=== PATIENT | male | born 1945 | race Two or more races ===

== ENCOUNTER 2017-06-22 12:41 | Inpatient (IN) | payer OTHER, MEDICARE ==
[~2017-06-22] VITALS: Ht 180.3 cm; Wt 73.5 kg
[2017-06-22] MEDS ORDERED: IV NORMAL SALINE 1000 ML BAG IV ONE (13:00)
[2017-06-22] MEDS ORDERED: TAMS0.4C34 PO (13:07)
[2017-06-22] MEDS ORDERED: ISON300T4 PO (13:07)
[2017-06-22] MEDS ORDERED: AMLO10TA2 PO (13:07)
[2017-06-22] MEDS ORDERED: WARF5TAB6 PO (13:07)
[2017-06-22] MEDS ORDERED: SENN-167 PO (13:07)
[2017-06-22] MEDS ORDERED: QUET25TA PO (13:07)
[2017-06-22] MEDS ORDERED: FOLI1TAB16 PO (13:07)
[2017-06-22] MEDS ORDERED: LEVE500T20 PO (13:07)
[2017-06-22] MEDS ORDERED: PYRI50TA14 PO (13:07)
[2017-06-22] MEDS ORDERED: ASPI81TA31 PO (13:07)
[2017-06-22] MEDS ORDERED: ATOR80TA PO (13:07)
[2017-06-22] MEDS ORDERED: LACO100T2 PO (13:07)
[2017-06-22] MEDS ORDERED: CAPS42.57 TP (13:07)
--- NOTE | 2017-06-22 13:17 | NUR ---
PT IS IN ROOM #1B. DR SAAVEDRA EVALUATED THE PT.
[2017-06-22 13:36] LABS: BASOPHILS # (AUTO) 0.4 K/uL (0.0-8.0); BASOPHILS % (AUTO) 2.2 % (0.0-2.0); EOSINOPHILS # (AUTO) 0.2 K/uL (0.0-0.7); EOSINOPHILS % (AUTO) 0.9 % (0.0-7.0); HEMATOCRIT 34.4 % (40-50); HEMOGLOBIN 11.1 G/DL (14.0-18.0); LYMPHOCYTES # (AUTO) 1.2 K/UL (0.8-4.8); LYMPHOCYTES % (AUTO) 7.2 % (20.5-51.5); MEAN CORPUSCULAR HGB CONC 32 g/dL (32.0-37.0); MEAN CORPUSCULAR VOLUME 89.8 FL (82.0-92.0); MONOCYTES % (AUTO) 11.5 % (0.0-11.0); NEUTROPHILS # (AUTO) 13.2 K/UL (1.8-8.9); NEUTROPHILS % (AUTO) 78.2 % (38.5-71.5); PLATELET COUNT (AUTO) 259 K/UL (150-450); RED BLOOD CELL COUNT(AUTO) 3.83 MIL/UL (4.7-6.1)
[2017-06-22 13:38] LABS: CREATININE 0.8 mg/dL (0.6-1.3); POTASSIUM 3.5 mmol/L (3.5-5.1)
[2017-06-22 13:44] LABS: BILIRUBIN,DIRECT 0.2 mg/dL (0.0-0.2); BILIRUBIN,TOTAL 0.7 mg/dL (0.2-1.0); TOTAL PROTEIN, SERUM 8.3 g/dL (6.4-8.2)
[2017-06-22] MEDS ORDERED: PIPERACILLIN SODIUM/TAZOBACTAM 3.375 G in IV DEXTROSE 5% 50 ML IV ONE (14:00)
[2017-06-22] MEDS ORDERED: VANCOMYCIN IV 1,000 MG in IV DEXTROSE 5% 250 ML IV ONE (14:00)
[2017-06-22 14:01] LABS: BAND % (MANUAL) 6 % (0-10); LYMPHOCYTES % (MANUAL) 8 % (20-40); MONOCYTES % (MANUAL) 11 % (2-10); NEUTROPHILS % (MANUAL) 75 % (42-75)
--- NOTE | 2017-06-22 14:15 | NUR ---
PT WAS TRANSFERED TO ROOM #215. REPORT WAS GIVEN TO MANAGER PRACTICE.
[2017-06-22] MEDS ORDERED: PIPERACILLIN/TAZOBACTAM/D5W 50 ML IV ONE (14:16)
[2017-06-22 14:30] LABS: *BLOOD, URINE 3+ (NEGATIVE); *COLOR,URINE YELLOW (YELLOW); *KETONES,URINE NEGATIVE (NEGATIVE); *PROTEIN,URINE 2+ (NEGATIVE); LEUKOCYTE ESTERASE ,URINE 2+ (NEGATIVE); NITRITE, URINE NEGATIVE (NEGATIVE); PH,URINE 8.5 (5.0-8.0); UGLUCOSE NEGATIVE (NEGATIVE)
[2017-06-22 14:38] LABS: *BILIRUBIN,URIN 1+ (NEGATIVE); *CLARITY,URINE SLIGHTLY HAZY (CLEAR)
[2017-06-22] MEDS ORDERED: VANCOMYCIN IV 200 ML ONE (14:39)
[2017-06-22 14:40] VITALS: BP 101/59
[2017-06-22 14:40] LABS: BACTERIA,URINE MANY /HPF (NONE SEEN); SQUAMOUS EPITHELIAL CELL,UR FEW /HPF (NONE SEEN); WBC,URINE 20-50 /HPF (0-3)
--- NOTE | 2017-06-22 14:40 | NUR ---
received from er. aware of name. made comfortable. no respiratory distress noted. left arm swollen.
--- NOTE | 2017-06-22 17:00 | NUR ---
dr ramírez aware of multiple skin breakdown ,wound consult per protocol
[2017-06-22] MEDS ORDERED: WARFARIN SODIUM 5 MG TABLET PO SCH (18:15)
--- NOTE | 2017-06-22 18:47 | NUR ---
CLINICAL PHARMACY NOTE: VANCOMYCIN DOSING Request for vancomycin dosing on 71 y/o male 5' 11" 162lbs for cellulitis of left elbow Temp 98.3 BUN 15 Scr 0.8 WBC 17 bands 6 Received vancomycin and Zosyn in ER. Continue Vancomycin 1Gm ivpb q12h estimated trough 17. Will order trough level prior to 4th dose. Will continue to monitor
[2017-06-22 20:25] VITALS: BP 120/75
[2017-06-22] MEDS: LEVETIRACETAM 500 MG TABLET PO SCH (21:04)
[2017-06-22] MEDS: ATORVASTATIN 40 MG TABLET PO SCH (21:04)
[2017-06-22] MEDS: SENNOSIDES 1 TABLET PO SCH (21:05)
[2017-06-22] MEDS: LACOSAMIDE 50 MG TABLET PO SCH (21:05)
[2017-06-22] MEDS: QUETIAPINE FUMARATE 25 MG TABLET PO SCH (21:05)
[2017-06-23] MEDS: VANCOMYCIN IV 1 G in PREMIXED 0 EACH IV SCH ×2 (01:51→14:12)
[2017-06-23 04:00] VITALS: BP 114/59
[2017-06-23] MEDS: Z GUARD REMEDY PASTE 57 GM TUBE TOP SCH ×3 (05:10→21:51)
[2017-06-23 06:50] LABS: CREATININE 0.7 mg/dL (0.6-1.3); POTASSIUM 3.5 mmol/L (3.5-5.1)
--- NOTE | 2017-06-23 06:58 | NUR ---
Received a call from the lab. Patient current INR is 4.86. Called Dr. Jimenez office for further orders.
[2017-06-23 07:15] LABS: BASOPHILS % (AUTO) 0.3 % (0.0-2.0); EOSINOPHILS # (AUTO) 0.4 K/uL (0.0-0.7); EOSINOPHILS % (AUTO) 3.4 % (0.0-7.0); HEMATOCRIT 32.3 % (40-50); HEMOGLOBIN 10.5 G/DL (14.0-18.0); LYMPHOCYTES # (AUTO) 1.5 K/UL (0.8-4.8); LYMPHOCYTES % (AUTO) 13.6 % (20.5-51.5); MEAN CORPUSCULAR HGB CONC 33 g/dL (32.0-37.0); MEAN CORPUSCULAR VOLUME 89.4 FL (82.0-92.0); MONOCYTES # (AUTO) 1.4 K/UL (0.1-1.30); MONOCYTES % (AUTO) 12.6 % (0.0-11.0); NEUTROPHILS # (AUTO) 7.6 K/UL (1.8-8.9); NEUTROPHILS % (AUTO) 70.1 % (38.5-71.5); PLATELET COUNT (AUTO) 265 K/UL (150-450); RED BLOOD CELL COUNT(AUTO) 3.62 MIL/UL (4.7-6.1); WHITE BLOOD COUNT (AUTO) 10.9 K/UL (4.0-11.2)
--- NOTE | 2017-06-23 07:30 | NUR ---
sleeping for now. made comfortable.no distress noted, left arm remains swollen ,red., elevated x 1 pillow
[2017-06-23] MEDS: FOLIC ACID 1 MG TABLET PO SCH (08:40)
[2017-06-23] MEDS: LACOSAMIDE 50 MG TABLET PO SCH ×2 (08:40→21:47)
[2017-06-23] MEDS: TAMSULOSIN HCL 0.4 MG CAP.SR.24H PO SCH (08:40)
[2017-06-23] MEDS: LEVETIRACETAM 500 MG TABLET PO SCH ×2 (08:40→21:47)
[2017-06-23] MEDS: PYRIDOXINE HCL 100 MG TABLET PO SCH (08:40)
[2017-06-23] MEDS: ASPIRIN 81 MG TAB.CHEW PO SCH (08:41)
[2017-06-23] MEDS: QUETIAPINE FUMARATE 25 MG TABLET PO SCH ×2 (08:41→21:50)
[2017-06-23] MEDS: AMLODIPINE 10 MG TABLET PO SCH (08:46)
[2017-06-23] MEDS: ISONIAZID 100 MG TABLET PO SCH (08:50)
[2017-06-23] MEDS ORDERED: ISONIAZID 300 MG TABLET PO SCH (09:00)
[2017-06-23 11:48] VITALS: BP 105/66
--- NOTE | 2017-06-23 12:15 | NUR ---
dr roy aware of inr elevated, made order and carried out
--- NOTE | 2017-06-23 12:45 | NUR ---
seen by dr arevalo, aspirated left elbow with yellow fluid,tolerated well by patient.specimen sent to lab as ordered. made more orders and carried out.
--- NOTE | 2017-06-23 13:07 | NUR ---
CLINICAL PHARMACY NOTE: VANCOMYCIN DOSING 71 YO MALE ON VANCOMYCIN 1 GM Q12H FRO CELLULITIS OF LEFT ELBOW; HT 5' 11" WT 162lbs Temp 98.2 BUN 12 Scr 0.7 WBC 17 WILL CONTINUE WITH VANCO 1 GM Q12H WILL ORDER TROUGH PRIOR TO 4TH DOSE TOMORROW 06/24 ~ 13:30. RX WILL FOLLOW AND ADJUST THE DOSE NECESSARY.
--- NOTE | 2017-06-23 15:25 | NUR ---
TEXTED DR. AUSTIN FOR MRI APPROVAL.
[2017-06-23 16:00] VITALS: BP 131/71
[2017-06-23 20:00] VITALS: BP 115/67
[2017-06-23] MEDS: ATORVASTATIN 40 MG TABLET PO SCH (21:47)
[2017-06-23] MEDS: SENNOSIDES 1 TABLET PO SCH (21:47)
[2017-06-24] MEDS: VANCOMYCIN IV 1 G in PREMIXED 0 EACH IV SCH ×2 (01:56→15:13)
[2017-06-24 05:25] VITALS: BP 103/70
[2017-06-24] MEDS: AMLODIPINE 10 MG TABLET PO SCH (08:49)
[2017-06-24] MEDS: TAMSULOSIN HCL 0.4 MG CAP.SR.24H PO SCH ×2 (08:55→09:00)
[2017-06-24] MEDS: Z GUARD REMEDY PASTE 57 GM TUBE TOP SCH ×2 (08:55→21:29)
[2017-06-24] MEDS: ASPIRIN 81 MG TAB.CHEW PO SCH ×2 (08:55→09:00)
[2017-06-24] MEDS: LACOSAMIDE 50 MG TABLET PO SCH ×3 (08:55→21:27)
[2017-06-24] MEDS: LEVETIRACETAM 500 MG TABLET PO SCH ×3 (08:55→21:27)
[2017-06-24] MEDS: PYRIDOXINE HCL 100 MG TABLET PO SCH ×2 (08:55→09:00)
[2017-06-24] MEDS: FOLIC ACID 1 MG TABLET PO SCH ×2 (08:55→09:00)
[2017-06-24] MEDS: ISONIAZID 100 MG TABLET PO SCH ×2 (08:55→09:00)
[2017-06-24] MEDS: QUETIAPINE FUMARATE 25 MG TABLET PO SCH ×3 (08:55→21:27)
--- NOTE | 2017-06-24 09:17 | NUR ---
PT AGREED TO TAKE THE MORNING MEDICATIONS, CRUSHED THE MEDICATIONS IN APPLE SAUCE. ONCE TRIED TO ADMINISTERED THE MEDICATION, PER PT "I DON'T WANT TO EAT". EDUCATION GIVEN, PT REFUSED. WILL TRY AGAIN LATER
[2017-06-24 12:09] VITALS: BP 126/75
--- NOTE | 2017-06-24 14:28 | NUR ---
Clinical pharmacy note-Vancomycin dosing per pharmacy Subjective: To continue Vancomycin dosing on this 71 year old male patient for cellulitis ht 71'' wt 162 lb Objective: BUN 12 (06/23) Scr 0.7 (06/23) WBC 10.9 (06/23) Temp 99.2 Vanco trough level : 11.9 Assessment/Plan: Since vanco trough level is 11.9 mcg/ml, will change vanco dose form 1gm IVPB q12 h to vanco 1gm IVPB q10h for predicted vanco trough level of 15 mcg/ml at steady state. 1st dose of current regimen is due today at 1500. Plan to draw vanco trough level before 4th dose of current regimen (level not yet ordered). Will continue to monitor renal function & adjust the dose if needed. Will monitor daily.
[2017-06-24 15:49] VITALS: BP 110/60
--- NOTE | 2017-06-24 19:15 | NUR ---
PT IS LAYING IN BED COMFORTABLY. NO S/S OF RESPIRATORY DISTRESS NOTED. NO PAIN NOTED. ALL SAFETY NEEDS ARE MET. PT REPORT IS GIVEN TO NOC NURSE. IV INTACT/PATENT.
[2017-06-24 20:13] VITALS: BP 103/81
[2017-06-24] MEDS: ATORVASTATIN 40 MG TABLET PO SCH (21:27)
[2017-06-24] MEDS: SENNOSIDES 1 TABLET PO SCH (21:32)
[2017-06-25] MEDS: VANCOMYCIN IV 1 G in PREMIXED 0 EACH IV SCH ×3 (01:45→21:00)
[2017-06-25 04:55] VITALS: BP 114/67
[2017-06-25 06:34] LABS: BILIRUBIN,TOTAL 0.6 mg/dL (0.2-1.0); CREATININE 0.8 mg/dL (0.6-1.3); MAGNESIUM 1.8 mg/dL (1.8-2.4); PHOSPHOROUS 3.4 mg/dL (2.5-4.9); POTASSIUM 3.5 mmol/L (3.5-5.1)
[2017-06-25 07:13] LABS: BASOPHILS % (AUTO) 0.5 % (0.0-2.0); EOSINOPHILS # (AUTO) 0.2 K/uL (0.0-0.7); EOSINOPHILS % (AUTO) 2.7 % (0.0-7.0); HEMATOCRIT 32.3 % (40-50); HEMOGLOBIN 10.5 G/DL (14.0-18.0); LYMPHOCYTES # (AUTO) 1.9 K/UL (0.8-4.8); LYMPHOCYTES % (AUTO) 22.6 % (20.5-51.5); MEAN CORPUSCULAR HEMOGLOBIN 29.4 UUG (27.0-31.0); MEAN CORPUSCULAR HGB CONC 33 g/dL (32.0-37.0); MEAN CORPUSCULAR VOLUME 90.3 FL (82.0-92.0); MONOCYTES # (AUTO) 1.1 K/UL (0.1-1.30); MONOCYTES % (AUTO) 12.5 % (0.0-11.0); NEUTROPHILS # (AUTO) 5.3 K/UL (1.8-8.9); NEUTROPHILS % (AUTO) 61.7 % (38.5-71.5); RED BLOOD CELL COUNT(AUTO) 3.58 MIL/UL (4.7-6.1); WHITE BLOOD COUNT (AUTO) 8.5 K/UL (4.0-11.2)
[2017-06-25 07:15] LABS: PLATELET COUNT (AUTO) 356 K/UL (150-450)
--- NOTE | 2017-06-25 08:48 | NUR ---
PT REFUSING ALL HIS MORNING MEDICATIONS, TRIED TO GIVE MED EDUCATION, PT GETS AGITATED. WILL TRY AGAIN LATER. PT REFUSES EDUCATION, HAS TOWEL ON HIS HEAD. REFUSES TO TALK.
[2017-06-25] MEDS: ASPIRIN 81 MG TAB.CHEW PO SCH ×2 (08:50→09:55)
[2017-06-25] MEDS: FOLIC ACID 1 MG TABLET PO SCH (08:50)
[2017-06-25] MEDS: ISONIAZID 100 MG TABLET PO SCH (08:50)
[2017-06-25] MEDS: TAMSULOSIN HCL 0.4 MG CAP.SR.24H PO SCH (08:50)
[2017-06-25] MEDS: LEVETIRACETAM 500 MG TABLET PO SCH ×2 (08:51→20:05)
[2017-06-25] MEDS: QUETIAPINE FUMARATE 25 MG TABLET PO SCH ×2 (08:51→20:05)
[2017-06-25] MEDS: AMLODIPINE 10 MG TABLET PO SCH (08:51)
[2017-06-25] MEDS: LACOSAMIDE 50 MG TABLET PO SCH ×2 (08:51→20:05)
[2017-06-25] MEDS: PYRIDOXINE HCL 100 MG TABLET PO SCH (08:51)
[2017-06-25] MEDS: Z GUARD REMEDY PASTE 57 GM TUBE TOP SCH ×2 (08:52→20:06)
--- NOTE | 2017-06-25 08:52 | NUR ---
PT REFUSAL OF MEDS IS WITNESSED BY TELEPHONE INTERVIEWER, RETURNED MEDICATIONS BACK TO PHARMACY BIN
[2017-06-25 11:25] VITALS: BP 110/68
--- NOTE | 2017-06-25 14:16 | NUR ---
WOUND CARE CONSULT: PT PRESENTS WITH MULTIPLE SKIN ISSUES INCLUDING LEFT ELBOW SWELLING, BILATERAL HEEL ESCHARS, LEFT THIGH STAGE 2 ULCER AND SACRAL SCARRING, ALL PRESENT ON ADMISSION. PT ON FIRST STEP MATTRESS. ALL SKIN PROTECTION AND WOUND RECOMMENDATIONS DISCUSSED WITH NURSING STAFF. WILL SEE PRN. ROY IN AGREEMENT WITH PLAN OF CARE. Addendum: 06/25/17 at 1419 by WOODY GIORDANO RN Amended: Links added.
[2017-06-25 15:21] VITALS: BP 114/66
--- NOTE | 2017-06-25 15:39 | NUR ---
Clinical pharmacy note-Vancomycin dosing per pharmacy Subjective: To continue Vancomycin dosing on this 71 year old male patient for cellulitis ht 71'' wt 162 lb Objective: BUN 8 Scr 0.8 WBC 8.5 Temp 98.6 Vanco trough level : 11.9 Assessment/Plan: Since vanco trough level is 11.9 mcg/ml, will change vanco dose form 1gm IVPB q12 h to vanco 1gm IVPB q10h for predicted vanco trough level of 15 mcg/ml at steady state. 3rd dose of current regimen was given today at 1100. Plan to draw vanco trough level before 4th dose of current regimen (level ordered for tonight at 2029). Will continue to monitor renal function & adjust the dose if needed. Will monitor daily.
[2017-06-25] MEDS: WARFARIN SODIUM 1 MG TABLET PO SCH (16:35)
--- NOTE | 2017-06-25 19:00 | NUR ---
NO CHANGES NOTED,ALL SAFETY NEEDS ARE MET.
[2017-06-25 20:00] VITALS: BP 137/71
[2017-06-25] MEDS: SENNOSIDES 1 TABLET PO SCH (20:05)
[2017-06-25] MEDS: ATORVASTATIN 40 MG TABLET PO SCH (20:05)
--- NOTE | 2017-06-25 20:30 | NUR ---
Tolerated night po meds. Patient attempted to jump out of bed, fall precaution observed.
--- NOTE | 2017-06-25 21:42 | NUR ---
Scheduled Vancomycin IV at 2100 pm not administered, Vanco trough level is 21.1.
--- NOTE | 2017-06-26 05:00 | NUR ---
Wound care/treatment/dressing done, Saturday wound pictures in chart. Assisted w/ all needs, vital signs are stable. Had small soft BM today, incontinence care provided. Fairly rested.
[2017-06-26 05:03] VITALS: BP 120/73
[2017-06-26] MEDS: VANCOMYCIN IV 1 G in PREMIXED 0 EACH IV SCH ×3 (06:19→20:20)
--- NOTE | 2017-06-26 07:30 | NUR ---
RECEIVED REPORT FRO MOLD BLOWER NURSE, PATIENT IN BED SLEEPING, BED MOVED FROM ONE SIDE OF THE ROOM TO THE OTHER. BED IN LOW POSITION, SIDE RAILS UP X2.
[2017-06-26] MEDS: LACOSAMIDE 50 MG TABLET PO SCH ×2 (09:35→20:20)
[2017-06-26] MEDS: PYRIDOXINE HCL 100 MG TABLET PO SCH (09:35)
[2017-06-26] MEDS: ISONIAZID 100 MG TABLET PO SCH (09:35)
[2017-06-26] MEDS: FOLIC ACID 1 MG TABLET PO SCH (09:35)
[2017-06-26] MEDS: AMLODIPINE 10 MG TABLET PO SCH (09:35)
[2017-06-26] MEDS: QUETIAPINE FUMARATE 25 MG TABLET PO SCH ×2 (09:35→20:21)
[2017-06-26] MEDS: TAMSULOSIN HCL 0.4 MG CAP.SR.24H PO SCH (09:35)
[2017-06-26] MEDS: LEVETIRACETAM 500 MG TABLET PO SCH ×2 (09:35→20:21)
[2017-06-26] MEDS: Z GUARD REMEDY PASTE 57 GM TUBE TOP SCH ×2 (09:35→20:21)
[2017-06-26] MEDS: ASPIRIN 81 MG TAB.CHEW PO SCH (09:35)
[2017-06-26 11:51] VITALS: BP 104/55
--- NOTE | 2017-06-26 12:00 | NUR ---
REPLACED IV SITE TO RIGHT UPPER ARM, SITE ON THUMB WAS DISLODGED AND LEAKING.
--- NOTE | 2017-06-26 12:19 | NUR ---
Clinical pharmacy note-Vancomycin dosing per pharmacy Subjective: To continue Vancomycin dosing on this 71 year old male patient for cellulitis ht 71'' wt 162 lb Objective: BUN 8 (06/25) Scr 0.8 (06/25) WBC 8.5 (06/25) Temp 98.6 Vanco trough level : 21.1 (06/25 @2030) Assessment/Plan: Since trough was high, last night's dose at 2100 was held. Rescheduled vanco to 1gm q12hr for new expected trough of 15.7, first dose today at 0900. Will order trough before 4th scheduled dose (not ordered yet). Will follow
[2017-06-26 15:38] VITALS: BP 110/56
[2017-06-26] MEDS: WARFARIN SODIUM 1 MG TABLET PO SCH (16:52)
--- NOTE | 2017-06-26 18:26 | NUR ---
PATIENT IN BED, RESTING MOST OF THE DAY. PATIENT HAD A BED BATH, AND DID NOT APPEAR TO BE IN ANY DISTRESS. PATIENTS BED IS IN A LOW POSITION, SIDE RAILS UP X2, BED ALARM ON.
[2017-06-26 20:00] VITALS: BP 129/77
[2017-06-26] MEDS: ATORVASTATIN 40 MG TABLET PO SCH (20:20)
[2017-06-26] MEDS: SENNOSIDES 1 TABLET PO SCH (20:21)
--- NOTE | 2017-06-26 21:48 | NUR ---
Received pt awake, non-verbal. No SOB. Denies any pain. Tolerated all night PO medications with chocolate pudding. Vancomycin IVPB tolerated well. IV site patent and intact with no signs of infiltration. Seen and examined by Dr. Guerrier. No further orders received. On contact isolation for ESBL urine.
[2017-06-27 04:00] VITALS: BP 135/77
--- NOTE | 2017-06-27 07:00 | NUR ---
RECEIVED REPORT FROM NIGHT NURSE, NO EVIDENCE OF DISTRESS NOTED. PATIENT IS IN BED SLEEPING, BED IN LOW POSITION, SIDE RAILS UP X2, BED ALARM SET.
--- NOTE | 2017-06-27 07:08 | NUR ---
No significant change at this time. Pt asleep in bed, non-verbal but responds to verbal stimuli. All routine medications given as ordered and tolerated well. IV site patent and intact with no signs of infiltration. No SOB noted. Repositioned q 2 hours. On contact isolation for ESBL urine.
[2017-06-27] MEDS: ASPIRIN 81 MG TAB.CHEW PO SCH (09:34)
[2017-06-27] MEDS: LACOSAMIDE 50 MG TABLET PO SCH ×2 (09:35→21:40)
[2017-06-27] MEDS: QUETIAPINE FUMARATE 25 MG TABLET PO SCH ×2 (09:36→21:40)
[2017-06-27] MEDS: ISONIAZID 100 MG TABLET PO SCH (09:36)
[2017-06-27] MEDS: FOLIC ACID 1 MG TABLET PO SCH (09:36)
[2017-06-27] MEDS: TAMSULOSIN HCL 0.4 MG CAP.SR.24H PO SCH (09:37)
[2017-06-27] MEDS: AMLODIPINE 10 MG TABLET PO SCH (09:37)
[2017-06-27] MEDS: PYRIDOXINE HCL 100 MG TABLET PO SCH (09:37)
[2017-06-27] MEDS: Z GUARD REMEDY PASTE 57 GM TUBE TOP SCH ×2 (09:38→21:41)
[2017-06-27] MEDS: LEVETIRACETAM 500 MG TABLET PO SCH ×2 (09:40→21:40)
[2017-06-27] MEDS: VANCOMYCIN IV 1 G in PREMIXED 0 EACH IV SCH ×2 (09:40→21:41)
[2017-06-27 12:09] VITALS: BP 115/69
[2017-06-27] MEDS ORDERED: PHYTONADIONE 10 MG/1 ML AMPUL SQ ONE (12:45)
--- NOTE | 2017-06-27 14:44 | NUR ---
Clinical pharmacy note-Vancomycin dosing per pharmacy Subjective: To continue Vancomycin dosing on this 71 year old male patient for cellulitis ht 71'' wt 162 lb Objective: BUN 8 (06/25) Scr 0.8 (06/25) WBC 8.5 (06/25) Temp 97.6 Assessment/Plan: Will continue Vancomycin 1gm q12hr for new expected trough of 15.7, third dose today at 0900. Will order trough before 4th scheduled dose (ordered for tonight at 2030). Will follow
[2017-06-27 15:51] VITALS: BP 96/60
--- NOTE | 2017-06-27 19:50 | NUR ---
Received pt in bed asleep and easily arousable to name when called. Denies any pain or discomfort at this time. HOB elevated. Left arm elevated w/ pillow. Safety measures and fall precautions maintained. Continue current plan of care.
[2017-06-27 19:51] VITALS: BP 120/72
[2017-06-27] MEDS: NITROFURANTOIN/NITROFURAN MAC 100 MG CAPSULE PO SCH (21:40)
[2017-06-27] MEDS: ATORVASTATIN 40 MG TABLET PO SCH (21:40)
[2017-06-27] MEDS: SENNOSIDES 1 TABLET PO SCH (21:40)
[2017-06-28 05:09] VITALS: BP 117/66
--- NOTE | 2017-06-28 05:48 | NUR ---
Shift end report: VS WNL. Pt slept well. No complaints presented. All needs attended. No significant event reported throughout the shift. Continue current plan of care.
--- NOTE | 2017-06-28 07:20 | NUR ---
RECEIVED REPORT FROM DENTAL ASSISTING INSTRUCTOR, PATIENT IN BED ASLEEP, SIDE RAILS UP X2, BED IN LOW POSITION, BED ALARM ON. PATIENT DOES NOT APPEAR TO BE IN ANY DISTRESS.
[2017-06-28 08:29] LABS: BASOPHILS % (AUTO) 0.4 % (0.0-2.0); EOSINOPHILS # (AUTO) 0.2 K/uL (0.0-0.7); EOSINOPHILS % (AUTO) 2.9 % (0.0-7.0); HEMATOCRIT 34.2 % (40-50); HEMOGLOBIN 11.1 G/DL (14.0-18.0); LYMPHOCYTES # (AUTO) 1.8 K/UL (0.8-4.8); LYMPHOCYTES % (AUTO) 23.2 % (20.5-51.5); MEAN CORPUSCULAR HEMOGLOBIN 29.3 UUG (27.0-31.0); MEAN CORPUSCULAR HGB CONC 33 g/dL (32.0-37.0); MEAN CORPUSCULAR VOLUME 89.9 FL (82.0-92.0); MONOCYTES # (AUTO) 0.7 K/UL (0.1-1.30); MONOCYTES % (AUTO) 8.9 % (0.0-11.0); NEUTROPHILS # (AUTO) 5.2 K/UL (1.8-8.9); NEUTROPHILS % (AUTO) 64.6 % (38.5-71.5); PLATELET COUNT (AUTO) 418 K/UL (150-450); RED BLOOD CELL COUNT(AUTO) 3.81 MIL/UL (4.7-6.1); WHITE BLOOD COUNT (AUTO) 7.9 K/UL (4.0-11.2)
[2017-06-28] MEDS: ISONIAZID 100 MG TABLET PO SCH (08:40)
[2017-06-28] MEDS: LEVETIRACETAM 500 MG TABLET PO SCH ×2 (08:40→20:34)
[2017-06-28] MEDS: FOLIC ACID 1 MG TABLET PO SCH (08:40)
[2017-06-28] MEDS: ASPIRIN 81 MG TAB.CHEW PO SCH (08:40)
[2017-06-28] MEDS: QUETIAPINE FUMARATE 25 MG TABLET PO SCH ×2 (08:40→20:35)
[2017-06-28] MEDS: LACOSAMIDE 50 MG TABLET PO SCH ×2 (08:41→20:35)
[2017-06-28] MEDS: PYRIDOXINE HCL 100 MG TABLET PO SCH (08:41)
[2017-06-28] MEDS: TAMSULOSIN HCL 0.4 MG CAP.SR.24H PO SCH (08:41)
[2017-06-28] MEDS: AMLODIPINE 10 MG TABLET PO SCH (08:41)
[2017-06-28] MEDS: NITROFURANTOIN/NITROFURAN MAC 100 MG CAPSULE PO SCH ×2 (08:41→20:35)
[2017-06-28] MEDS: Z GUARD REMEDY PASTE 57 GM TUBE TOP SCH ×2 (08:43→20:37)
[2017-06-28 08:50] LABS: BILIRUBIN,TOTAL 0.3 mg/dL (0.2-1.0); CREATININE 0.8 mg/dL (0.6-1.3); MAGNESIUM 1.9 mg/dL (1.8-2.4); PHOSPHOROUS 3.5 mg/dL (2.5-4.9); POTASSIUM 3.9 mmol/L (3.5-5.1); TOTAL PROTEIN, SERUM 8.6 g/dL (6.4-8.2)
[2017-06-28 11:09] VITALS: BP 95/74
[2017-06-28] MEDS: VANCOMYCIN IV 1 G in PREMIXED 0 EACH IV SCH (11:35)
--- NOTE | 2017-06-28 11:41 | NUR ---
Clinical pharmacy note-Vancomycin dosing per pharmacy Subjective: To continue Vancomycin dosing on this 71 year old male patient for cellulitis ht 71'' wt 162 lb Objective: BUN 8 (06/25) Scr 0.8 (06/25) WBC 8.5 (06/25) Temp 98.5 Trough: 19.7 (yesterday 06/27 @ 2058) Assessment/Plan: Based off trough yesterday, will reschedule regimen to 1gm q14hr for new expected trough of 16.1. Second dose was due today at 1100. Will check trough before 4th scheduled dose( ordered and due tomorrow 06/29 @ 1430). Will check level and adjust as needed. Will continue to follow
[2017-06-28] MEDS ORDERED: IV NORMAL SALINE 250 ML BAG IV ONE (12:00)
[2017-06-28 12:12] VITALS: BP 85/67
[2017-06-28 15:22] VITALS: BP 122/73
--- NOTE | 2017-06-28 18:51 | NUR ---
PATIENT HAD AN EPISODE WHERE HIS SYSTOLIC BLOOD PRESSURE DROPPED BELOW 90, A BOLUS OF FLUID WAS ORDERED AND PATIENT'S VITALS RETURNED TO WITHIN NORMAL LIMITS. CURRENTLY PATIENT IS IN BED WATCHING TV, NO EVIDENCE OF DISTRESS NOTED, NO SHORTNESS OF BREATH, NO PAIN REPORTED. BED IN LOW POSITION, SIDE RAILS UP X2.
[2017-06-28 19:00] VITALS: BP 132/78
[2017-06-28] MEDS: SENNOSIDES 1 TABLET PO SCH (20:35)
[2017-06-28] MEDS: ATORVASTATIN 40 MG TABLET PO SCH (20:35)
--- NOTE | 2017-06-28 22:25 | NUR ---
DR. STEARNS CALLED FOR PATIENT'S INCISION AND DRAINAGE TO BE SCHEDULED TOMORROW MORNING 06/29/17. MD'S ORDER FOR CONSENT AND NPO STATUS TAKEN AND CARRIED OUT. CONSENT SIGNED AND PLACED IN PATIENT'S CHART.
--- NOTE | 2017-06-29 | NUR ---
PATIENT PLACED ON NPO STATUS FOR INCISION AND DRAINAGE PROCEDURE TODAY. PATIENT ASLEEP, EASILY AROUSABLE, IN NO ACUTE DISTRESS, NO SOB. BED ALARM ON. WILL CONTINUE TO MONITOR.
[2017-06-29] MEDS: VANCOMYCIN IV 1 G in PREMIXED 0 EACH IV SCH ×2 (00:05→17:31)
[2017-06-29 04:00] VITALS: BP 121/74
--- NOTE | 2017-06-29 06:30 | NUR ---
PATIENT SLEPT WELL, IN NO ACUTE DISTRESS. PATIENT KEPT CLEAN/DRY, REPOSITIONED FOR COMFORT, OFFLOAD BILATERAL HEELS. BED ALARM ON WILL CONTINUE TO MONITOR.
[2017-06-29] MEDS ORDERED: POLYMYXIN B SULFATE 500,000 UNITS, BACITRACIN 50,000 UNITS, NORMAL SALINE 20 ML MC ONE ×3 (07:45)
--- NOTE | 2017-06-29 07:50 | NUR ---
Patient being picked up by surgical team at this time. Patient has been NPO since midnight. Consent signed.
[2017-06-29] MEDS ORDERED: FENTANYL CITRATE 100 MCG/2 ML AMPUL ONE (08:05)
[2017-06-29] MEDS ORDERED: ETHYL CHLORIDE TP ONE (09:03)
[2017-06-29] MEDS ORDERED: MORPHINE SULFATE 2 MG/1 ML DISP.SYRIN IM PRN (09:15)
[2017-06-29] MEDS ORDERED: HYDROCODONE/APAP 5-325MG TABLET PO PRN (09:15)
[2017-06-29] MEDS: TAMSULOSIN HCL 0.4 MG CAP.SR.24H PO SCH (09:45)
[2017-06-29] MEDS: ASPIRIN 81 MG TAB.CHEW PO SCH (09:45)
[2017-06-29] MEDS: NITROFURANTOIN/NITROFURAN MAC 100 MG CAPSULE PO SCH ×2 (09:46→21:56)
[2017-06-29] MEDS: FOLIC ACID 1 MG TABLET PO SCH (09:46)
[2017-06-29] MEDS: PYRIDOXINE HCL 100 MG TABLET PO SCH (09:47)
[2017-06-29] MEDS: LACOSAMIDE 50 MG TABLET PO SCH ×2 (09:47→21:56)
[2017-06-29] MEDS: LEVETIRACETAM 500 MG TABLET PO SCH ×2 (09:47→21:56)
[2017-06-29] MEDS: QUETIAPINE FUMARATE 25 MG TABLET PO SCH ×2 (09:47→21:56)
[2017-06-29] MEDS: Z GUARD REMEDY PASTE 57 GM TUBE TOP SCH ×2 (09:47→21:57)
[2017-06-29] MEDS: ISONIAZID 100 MG TABLET PO SCH (09:52)
[2017-06-29] MEDS: AMLODIPINE 10 MG TABLET PO SCH (10:03)
[2017-06-29] MEDS ORDERED: IRR NORMAL SALINE IRRIGATION 1,000 ML BOTTLE IR ONE (11:02)
[2017-06-29 11:05] VITALS: BP 113/68
[2017-06-29 12:53] LABS: BASOPHILS % (AUTO) 0.5 % (0.0-2.0); EOSINOPHILS # (AUTO) 0.2 K/uL (0.0-0.7); HEMATOCRIT 34.4 % (40-50); LYMPHOCYTES # (AUTO) 1.5 K/UL (0.8-4.8); LYMPHOCYTES % (AUTO) 17.4 % (20.5-51.5); MEAN CORPUSCULAR HGB CONC 32 g/dL (32.0-37.0); MEAN CORPUSCULAR VOLUME 90.8 FL (82.0-92.0); MONOCYTES # (AUTO) 0.7 K/UL (0.1-1.30); NEUTROPHILS % (AUTO) 72.1 % (38.5-71.5); PLATELET COUNT (AUTO) 381 K/UL (150-450); RED BLOOD CELL COUNT(AUTO) 3.79 MIL/UL (4.7-6.1); WHITE BLOOD COUNT (AUTO) 8.4 K/UL (4.0-11.2)
[2017-06-29 13:08] LABS: ALANINE AMINOTRANSFERASE 16 U/L (16-63); ALKALINE PHOSPHATASE 80 U/L (50-136); ASPARTATE AMINOTRANSFERASE 18 U/L (15-37); BILIRUBIN,TOTAL 0.2 mg/dL (0.2-1.0); CARBON DIOXIDE 28 mmol/L (21-32); CHLORIDE 105 mmol/L (98-107); CREATININE 0.6 mg/dL (0.6-1.3); GLUCOSE 85 mg/dL (74-106); MAGNESIUM 1.9 mg/dL (1.8-2.4); PHOSPHOROUS 3.4 mg/dL (2.5-4.9); POTASSIUM 3.9 mmol/L (3.5-5.1); TOTAL PROTEIN, SERUM 8.4 g/dL (6.4-8.2); UREA NITROGEN, BLOOD 14 mg/dL (7-18)
[2017-06-29 15:18] VITALS: BP 110/62
--- NOTE | 2017-06-29 16:14 | NUR ---
Clinical pharmacy note-Vancomycin dosing per pharmacy Subjective: To continue Vancomycin dosing on this 71 year old male patient for cellulitis ht 71'' wt 162 lb Objective: BUN 14 Scr 0.6 WBC 8.4 Temp 98 Assessment/Plan: Vancomycin trough level was ordered for 1430 today. Patient refused blood draw. Per RN, she will try to draw around 4pm if patient does not refuse (waiting to hear from RN). The patient is currently on vancomycin 1gm IVPB q14hr (dose was due today at 1500 but is still not given due to trough not drawn & patient refusing med also per RN). Will continue to follow Addendum: 06/29/17 at 1715 by LILIANE MANE ADM VANCO TROUGH LEVEL DRAWN AT 1610 IS 15.9 RESCHEDULED SAME DOSE OF 1GM IV Q14H FOR 1730 WILL REPEAT THE LEVEL IN A COUPLE OF DAYS
--- NOTE | 2017-06-29 20:15 | NUR ---
Pt refusing sputum induction at this time, verbalized need for procedure, pt gets agitated and still refuses. RN and Charge Nurse aware.
[2017-06-29 20:42] VITALS: BP 106/55
[2017-06-29] MEDS: SENNOSIDES 1 TABLET PO SCH (21:56)
[2017-06-29] MEDS: ATORVASTATIN 40 MG TABLET PO SCH (21:56)
--- NOTE | 2017-06-29 22:00 | NUR ---
PATIENT IS CONFUSED AND RESISTANT TO CARE. PATIENT PULLED OUT IV EXTENSION LINE, MIDLINE INTACT. ATTEMPTED TO REDIRECT PATIENT, KEPT COMFORTABLE, DRY, CHANGED DIAPER, OFFERED FLUIDS. PATIENT IS IN NO DISTRESS.
--- NOTE | 2017-06-29 23:00 | NUR ---
CALLED [employer] IN [place] [employer] TO EXPLAIN TO THE PATIENT REGARDING THE NEED OF SPUTUM SPECIMEN AND COMPLIANCE WITH MEDICATION REGIMEN. PATIENT IS VERY CONFUSED AND RESISTANT TO CARE. RESPIRATORY THERAPIST PROCEEDED WITH SPUTUM INDUCTION. PATIENT TOLERATED WELL, IN NO ACUTE DISTRESS, NO SOB.
[2017-06-30 04:56] VITALS: BP 137/72
--- NOTE | 2017-06-30 06:24 | NUR ---
PATIENT IS S/P INCISION AND DRAINAGE OF THE LEFT ARM. DRESSING DRY/CLEAN/INTACT. PATIENT SLEPT WELL, IN NO ACUTE DISTRESS. PATIENT IS CONFUSED, UNCOOPERATIVE, RESISTANT TO CARE. SPUTUM INDUCTION #2 AND #3 SPECIMENS SENT TO THE LAB. PATIENT TOLERATED PROCEDURE WELL, NO SOB NOTED. PATIENT KEPT CLEAN/DRY, REPOSITIONED FOR COMFORT, HEELS OFFLOADED. SAFETY MEASURES IN PLACE, BED ALARM ON. WILL CONTINUE TO MONITOR.
[2017-06-30 06:34] LABS: BILIRUBIN,TOTAL 0.4 mg/dL (0.2-1.0); CREATININE 0.8 mg/dL (0.6-1.3); PHOSPHOROUS 3.5 mg/dL (2.5-4.9); POTASSIUM 4.1 mmol/L (3.5-5.1); TOTAL PROTEIN, SERUM 8.9 g/dL (6.4-8.2)
[2017-06-30] MEDS: VANCOMYCIN IV 1 G in PREMIXED 0 EACH IV SCH ×2 (07:15→20:32)
[2017-06-30 07:18] LABS: BASOPHILS % (AUTO) 0.5 % (0.0-2.0); EOSINOPHILS # (AUTO) 0.2 K/uL (0.0-0.7); HEMATOCRIT 34.9 % (40-50); HEMOGLOBIN 11.3 G/DL (14.0-18.0); LYMPHOCYTES # (AUTO) 2.2 K/UL (0.8-4.8); LYMPHOCYTES % (AUTO) 34.3 % (20.5-51.5); MEAN CORPUSCULAR HEMOGLOBIN 29.4 UUG (27.0-31.0); MEAN CORPUSCULAR HGB CONC 33 g/dL (32.0-37.0); MEAN CORPUSCULAR VOLUME 90.5 FL (82.0-92.0); MONOCYTES # (AUTO) 0.8 K/UL (0.1-1.30); NEUTROPHILS # (AUTO) 3.1 K/UL (1.8-8.9); NEUTROPHILS % (AUTO) 50.2 % (38.5-71.5); PLATELET COUNT (AUTO) 405 K/UL (150-450); RED BLOOD CELL COUNT(AUTO) 3.86 MIL/UL (4.7-6.1); WHITE BLOOD COUNT (AUTO) 6.3 K/UL (4.0-11.2)
[2017-06-30] MEDS: LEVETIRACETAM 500 MG TABLET PO SCH ×2 (08:19→20:01)
[2017-06-30] MEDS: QUETIAPINE FUMARATE 25 MG TABLET PO SCH ×2 (08:19→20:01)
[2017-06-30] MEDS: ISONIAZID 100 MG TABLET PO SCH (08:19)
[2017-06-30] MEDS: TAMSULOSIN HCL 0.4 MG CAP.SR.24H PO SCH (08:19)
[2017-06-30] MEDS: NITROFURANTOIN/NITROFURAN MAC 100 MG CAPSULE PO SCH ×2 (08:19→20:01)
[2017-06-30] MEDS: AMLODIPINE 10 MG TABLET PO SCH (08:19)
[2017-06-30] MEDS: ASPIRIN 81 MG TAB.CHEW PO SCH (08:19)
[2017-06-30] MEDS: FOLIC ACID 1 MG TABLET PO SCH (08:19)
[2017-06-30] MEDS: LACOSAMIDE 50 MG TABLET PO SCH ×2 (08:19→20:01)
[2017-06-30] MEDS: Z GUARD REMEDY PASTE 57 GM TUBE TOP SCH ×2 (08:20→20:02)
[2017-06-30] MEDS: PYRIDOXINE HCL 100 MG TABLET PO SCH (08:20)
--- NOTE | 2017-06-30 09:30 | NUR ---
PT SEEN BY DR STEARNS DRAINAGE REMOVED ,DRESSING CHANGED.
--- NOTE | 2017-06-30 10:15 | NUR ---
Clinical pharmacy note-Vancomycin dosing per pharmacy Subjective: To continue Vancomycin dosing on this 71 year old male patient for cellulitis ht 71'' wt 162 lb Objective: BUN 11 Scr 0.8 WBC 6.3 Temp 97.8 Assessment/Plan: Will continue same dose of vancomycin 1gm IVPB q14hr for today. Plan to repeat vancomycin trough level on 07/01 at 1100 since vancomycin trough on 06/29 was drawn late (patient refusing- RN henri from midline). Pharmacy shall review the level & adjust the dose if needed. Will continue to follow
[2017-06-30 11:07] VITALS: BP 107/59
--- NOTE | 2017-06-30 15:00 | NUR ---
PATIENT SLEPT WELL, IN NO ACUTE DISTRESS. PATIENT KEPT CLEAN/DRY, REPOSITIONED FOR COMFORT, OFFLOAD BILATERAL HEELS. BED ALARM ON WILL CONTINUE TO MONITOR.
[2017-06-30 15:11] VITALS: BP 110/68
[2017-06-30] MEDS: SENNOSIDES 1 TABLET PO SCH (20:01)
[2017-06-30] MEDS: ATORVASTATIN 40 MG TABLET PO SCH (20:01)
[2017-06-30 20:23] VITALS: BP 105/61
[2017-07-01 05:30] VITALS: BP 115/72
--- NOTE | 2017-07-01 05:44 | NUR ---
PATIENT SLEPT WELL, IN NO ACUTE DISTRESS. DRESSING ON LEFT ELBOW/UPPER ARM CLEAN/DRY/INTACT, NO S/S OF BLEEDING/DRAINAGE. PT KEPT CLEAN/DRY, REPOSITIONED FOR COMFORT, HEELS OFFLOADED. SAFETY MEASURES IN PLACE, BED ALARM ON. WILL CONTINUE TO MONITOR.
[2017-07-01] MEDS: LEVETIRACETAM 500 MG TABLET PO SCH (08:09)
[2017-07-01] MEDS: AMLODIPINE 10 MG TABLET PO SCH (08:09)
[2017-07-01] MEDS: QUETIAPINE FUMARATE 25 MG TABLET PO SCH (08:09)
[2017-07-01] MEDS: LACOSAMIDE 50 MG TABLET PO SCH (08:09)
[2017-07-01] MEDS: TAMSULOSIN HCL 0.4 MG CAP.SR.24H PO SCH (08:09)
[2017-07-01] MEDS: FOLIC ACID 1 MG TABLET PO SCH (08:09)
[2017-07-01] MEDS: NITROFURANTOIN/NITROFURAN MAC 100 MG CAPSULE PO SCH (08:09)
[2017-07-01] MEDS: PYRIDOXINE HCL 100 MG TABLET PO SCH (08:09)
[2017-07-01] MEDS: ASPIRIN 81 MG TAB.CHEW PO SCH (08:10)
[2017-07-01] MEDS: ISONIAZID 100 MG TABLET PO SCH (08:10)
[2017-07-01] MEDS: Z GUARD REMEDY PASTE 57 GM TUBE TOP SCH (08:10)
[2017-07-01] MEDS ORDERED: VANC1PLA10 IV (08:27)
[2017-07-01] MEDS ORDERED: MERO1VIA IV (08:27)
[2017-07-01 11:48] VITALS: BP 109/67
[2017-07-01] MEDS: VANCOMYCIN IV 1 G in PREMIXED 0 EACH IV SCH (12:59)
[2017-07-01 15:15] VITALS: BP 102/57
--- NOTE | 2017-07-01 15:20 | NUR ---
DISCHARGE PROTOCOL FOLLOWED, PICTURES TAKEN AND PLACED IN CHART. PT GOING WITH MIDLINE JOSE INTACT AND PATENT. MEPILEX OVER L THIGH IN TACT ANS WELL MORTEZA BANDAGE TO LEFT ARM.
--- NOTE | 2017-07-01 15:50 | NUR ---
RECEIVED CALL FROM JACQUELINE, PT POSITIVE FOR MRSA IN LEFT ELBOW WOUND CULTURE. PT ALREADY LEFT IN AMBULANCE. PAGED DR MEJIA TO NOTIFY
== END 2017-07-01 15:30 | DRG 383 ==
LOC: ER 12:41 → TELE 14:15 → MED 17:35
PROVIDERS: ADMIT Internal Medicine; ATTEND Internal Medicine
PROC: 05H533Z Insertion of Infusion Device into Right Subclavian Vein, Percutaneous Approach (ICD-10-PCS; principal; 2017-06-29 08:07)
PROC: 0H9EXZZ Drainage of Left Lower Arm Skin, External Approach (ICD-10-PCS; principal; 2017-06-29 08:07)
DX: L03.114 Cellulitis of left upper limb (principal); G92 Toxic encephalopathy; D68.32 Hemorrhagic disorder due to extrinsic circulating anticoagulants; F03.90 Unspecified dementia, unspecified severity, without behavioral disturbance, psychotic disturbance, mood disturbance, and anxiety; I48.91 Unspecified atrial fibrillation; N39.0 Urinary tract infection, site not specified; M25.422 Effusion, left elbow; Z79.899 Other long term (current) drug therapy; Z79.01 Long term (current) use of anticoagulants; B96.20 Unspecified Escherichia coli [E. coli] as the cause of diseases classified elsewhere; Z16.12 Extended spectrum beta lactamase (ESBL) resistance; Z16.24 Resistance to multiple antibiotics; D64.9 Anemia, unspecified; L02.414 Cutaneous abscess of left upper limb; M19.022 Primary osteoarthritis, left elbow; R79.1 Abnormal coagulation profile; T45.515A Adverse effect of anticoagulants, initial encounter; Y92.099 Unspecified place in other non-institutional residence as the place of occurrence of the external cause
CPT/HCPCS: 36415; 70030-TC; 71010; 73080; 83605; 83690; 83735; 84100; 85025; 85610; 85730; 87040; 87070; 87075; 87077; 87086; 92523; 93005; 94640; 97110; 97165; 97530; A4217; A4649; A4663; C1758; J2543; J3010; J3370; J3430; J3490; J7030; J7040; J7050; J7060

== ENCOUNTER 2017-12-30 21:07 | Inpatient (IN) | payer OTHER, MEDICARE ==
[~2017-12-30] VITALS: Ht 177.8 cm; Wt 73.6 kg
[~2017-12-30 21:07] MED LIST: AMLO10TA2 PO; ASPI81TA31 PO; ATOR80TA PO; CAPS42.57 TP; FOLI1TAB16 PO; ISON300T4 PO; LACO100T2 PO; LEVE500T20 PO; MERO1VIA IV; PYRI50TA14 PO; QUET25TA PO; SENN-167 PO; TAMS0.4C34 PO; VANC1PLA10 IV; WARF-58 PO
[2017-12-30] MEDS ORDERED: IV NORMAL SALINE 1000 ML BAG IV ONE (22:00)
[2017-12-30] MEDS ORDERED: ACET-2154 PO (22:06)
[2017-12-30] MEDS ORDERED: OLAN7.5T3 PO (22:06)
[2017-12-30] MEDS ORDERED: LACO100T2 PO (22:06)
[2017-12-30] MEDS ORDERED: NIFE30TA2 PO (22:06)
[2017-12-30] MEDS ORDERED: DIVA125C PO (22:06)
[2017-12-30] MEDS ORDERED: MULT-1119 PO (22:06)
[2017-12-30] MEDS ORDERED: LACT-239 PO (22:06)
[2017-12-30] MEDS ORDERED: PANT40TA4 PO (22:06)
[2017-12-30 22:35] LABS: BASOPHILS % (AUTO) 0.2 % (0.0-2.0); EOSINOPHILS # (AUTO) 0.1 K/uL (0.0-0.7); EOSINOPHILS % (AUTO) 2.4 % (0.0-7.0); HEMATOCRIT 34.1 % (36.7-47.1); HEMOGLOBIN 11.3 g/dL (12.5-16.3); LYMPHOCYTES # (AUTO) 1.4 K/uL (20.0-40.0); LYMPHOCYTES % (AUTO) 26.9 % (20.5-51.5); MEAN CORPUSCULAR HEMOGLOBIN 30.9 uug (23.8-33.4); MEAN CORPUSCULAR HGB CONC 33 g/dL (32.5-36.3); MEAN CORPUSCULAR VOLUME 93.3 fL (73.0-96.2); MONOCYTES # (AUTO) 0.5 K/uL (2.0-10.0); MONOCYTES % (AUTO) 9.6 % (0.0-11.0); NEUTROPHILS # (AUTO) 3.3 K/uL (1.8-8.9); NEUTROPHILS % (AUTO) 60.9 % (38.5-71.5); PLATELET COUNT (AUTO) 71 K/uL (152-348); RED BLOOD CELL COUNT(AUTO) 3.65 MIL/uL (4.06-5.63); WHITE BLOOD COUNT (AUTO) 5.4 K/uL (3.6-10.2)
[2017-12-30 22:55] LABS: BAND % (MANUAL) 2 % (0-10); EOSINOPHILS % (MANUAL) 2 % (0-8); LYMPHOCYTES % (MANUAL) 34 % (20-40); MONOCYTES % (MANUAL) 6 % (2-10); NEUTROPHILS % (MANUAL) 56 % (42-75)
[2017-12-30 23:15] LABS: CARBON DIOXIDE 35 mmol/L (21-32); CHLORIDE 104 mmol/L (98-107); CREATININE 0.7 mg/dL (0.6-1.3); GLUCOSE 85 mg/dL (74-106); POTASSIUM 4.5 mmol/L (3.5-5.1); UREA NITROGEN, BLOOD 26 mg/dL (7-18)
[2017-12-30 23:16] LABS: ETHANOL < 3 MG/DL (0-0)
[2017-12-30 23:28] LABS: THYROID STIMULATING HORMONE 3.214 mIU/mL (0.358-3.740)
[2017-12-30 23:31] LABS: ALANINE AMINOTRANSFERASE 47 U/L (16-63); ALKALINE PHOSPHATASE 78 U/L (50-136); ASPARTATE AMINOTRANSFERASE 34 U/L (15-37); BILIRUBIN,DIRECT 0.1 mg/dL (0.0-0.2); BILIRUBIN,TOTAL 0.3 mg/dL (0.2-1.0); TOTAL PROTEIN, SERUM 7.6 g/dL (6.4-8.2)
[2017-12-30 23:33] LABS: ACETAMINOPHEN < 2.0 ug/mL (10-30)
[2017-12-30 23:59] LABS: *BILIRUBIN,URIN NEGATIVE (NEGATIVE); *BLOOD, URINE Trace-intact (NEGATIVE); *CLARITY,URINE CLOUDY (CLEAR); *COLOR,URINE YELLOW (YELLOW); *KETONES,URINE TRACE (NEGATIVE); *PROTEIN,URINE 2+ (NEGATIVE); LEUKOCYTE ESTERASE ,URINE 1+ (NEGATIVE); NITRITE, URINE NEGATIVE (NEGATIVE); PH,URINE 7.5 (5.0-8.0); UGLUCOSE NEGATIVE (NEGATIVE)
[2017-12-31 00:07] LABS: *AMPHETAMINE, URINE NEGATIVE (NEGATIVE); *BARBITURATE, URINE NEGATIVE (NEGATIVE); *CANNABINOID, URINE NEGATIVE (NEGATIVE); *COCCAINE, URINE NEGATIVE (NEGATIVE); *OPIATE, URINE NEGATIVE (NEGATIVE); *PHENCYCLIDINE SCREEN,URINE NEGATIVE (NEGATIVE)
[2017-12-31 00:18] LABS: BACTERIA,URINE MANY /HPF (NONE SEEN); SQUAMOUS EPITHELIAL CELL,UR FEW /HPF (NONE SEEN)
[2017-12-31] MEDS ORDERED: CEFTRIAXONE 1 G in IV DEXTROSE 5% 50 ML IV ONE (00:45)
[2017-12-31] MEDS ORDERED: CEFTRIAXONE 1 G VIAL ONE (01:19)
[2017-12-31 02:00] VITALS: BP 133/75
[2017-12-31] MEDS ORDERED: IV D5/ 0.9% NACL 1,000 ML IV PRN (02:00)
[2017-12-31 04:00] VITALS: BP 125/79
[2017-12-31] MEDS ORDERED: CEFTRIAXONE 1 G in IV DEXTROSE 5% 50 ML IV SCH (08:30)
[2017-12-31] MEDS ORDERED: ACETAMINOPHEN 325 MG TABLET PO PRN (08:45)
[2017-12-31] MEDS ORDERED: COMPLEAT MODIFIED FORMULA 1000 ML LIQUID PO SCH (09:00)
[2017-12-31] MEDS ORDERED: ASPIRIN 81 MG TAB.CHEW PO SCH (09:00)
[2017-12-31] MEDS: LEVETIRACETAM 500 MG TABLET PO SCH ×2 (09:22→21:55)
[2017-12-31] MEDS: TAMSULOSIN HCL 0.4 MG CAP.SR.24H PO SCH ×2 (09:23→21:55)
[2017-12-31] MEDS: FOLIC ACID 1 MG TABLET PO SCH (09:23)
[2017-12-31] MEDS: DIVALPROEX SPRINKLE 125 MG CAP.SPRINK PO SCH ×3 (09:23→17:00)
[2017-12-31] MEDS: PANTOPRAZOLE SODIUM 40 MG TABLET.DR PO SCH (09:24)
[2017-12-31] MEDS: NIFEdipine XL 30 MG TABSR PO SCH (09:38)
[2017-12-31 11:52] VITALS: BP 112/69
[2017-12-31] MEDS ORDERED: OLANZAPINE 2.5 MG TABLET PO SCH (14:00)
[2017-12-31] MEDS: LACOSAMIDE 50 MG TABLET PO SCH ×2 (14:17→21:55)
[2017-12-31 15:51] VITALS: BP 116/71
[2017-12-31] MEDS ORDERED: OLANZAPINE 2.5 MG TABLET PO PRN (16:30)
[2017-12-31] MEDS: WARFARIN SODIUM 5 MG TABLET PO SCH (17:00)
[2017-12-31] MEDS: BOOST PLUS 237 ML LIQUID (VERY VANILLA) PO SCH (17:00)
[2017-12-31 20:00] VITALS: BP 99/59
[2017-12-31] MEDS: SIMVASTATIN 40 MG TABLET PO SCH (21:55)
[2017-12-31] MEDS: CEFTRIAXONE 1 G in IV DEXTROSE 5% 50 ML IV SCH (22:03)
[2017-12-31] MEDS: POTASSIUM CHLORIDE 10 MEQ in IV 1/2NS 1000 ML 1,000 ML IV PRN (22:03)
[2018-01-01 05:20] VITALS: BP 148/90
[2018-01-01] MEDS: LACOSAMIDE 50 MG TABLET PO SCH ×3 (06:21→21:19)
[2018-01-01] MEDS: PANTOPRAZOLE SODIUM 40 MG TABLET.DR PO SCH (06:21)
[2018-01-01 07:00] LABS: BASOPHILS % (AUTO) 0.2 % (0.0-2.0); EOSINOPHILS # (AUTO) 0.1 K/uL (0.0-0.7); EOSINOPHILS % (AUTO) 1.1 % (0.0-7.0); HEMATOCRIT 34.1 % (36.7-47.1); HEMOGLOBIN 11.2 g/dL (12.5-16.3); LYMPHOCYTES # (AUTO) 0.7 K/uL (20.0-40.0); LYMPHOCYTES % (AUTO) 11.9 % (20.5-51.5); MEAN CORPUSCULAR HEMOGLOBIN 30.7 uug (23.8-33.4); MEAN CORPUSCULAR HGB CONC 33 g/dL (32.5-36.3); MEAN CORPUSCULAR VOLUME 93.4 fL (73.0-96.2); MONOCYTES # (AUTO) 0.6 K/uL (2.0-10.0); MONOCYTES % (AUTO) 10.3 % (0.0-11.0); NEUTROPHILS # (AUTO) 4.2 K/uL (1.8-8.9); NEUTROPHILS % (AUTO) 76.5 % (38.5-71.5); PLATELET COUNT (AUTO) 64 K/uL (152-348); RED BLOOD CELL COUNT(AUTO) 3.65 MIL/uL (4.06-5.63); WHITE BLOOD COUNT (AUTO) 5.5 K/uL (3.6-10.2)
[2018-01-01 07:33] LABS: ALANINE AMINOTRANSFERASE 36 U/L (16-63); ALKALINE PHOSPHATASE 77 U/L (50-136); ASPARTATE AMINOTRANSFERASE 35 U/L (15-37); BILIRUBIN,TOTAL 0.2 mg/dL (0.2-1.0); CARBON DIOXIDE 29 mmol/L (21-32); CHLORIDE 105 mmol/L (98-107); CREATININE 0.5 mg/dL (0.6-1.3); GLUCOSE 78 mg/dL (74-106); MAGNESIUM 1.5 mg/dL (1.8-2.4); PHOSPHOROUS 3.1 mg/dL (2.5-4.9); POTASSIUM 4.5 mmol/L (3.5-5.1); TOTAL PROTEIN, SERUM 7.7 g/dL (6.4-8.2); UREA NITROGEN, BLOOD 14 mg/dL (7-18); VALPROIC ACID 11 ug/mL (50-100)
[2018-01-01] MEDS: BOOST PLUS 237 ML LIQUID (VERY VANILLA) PO SCH ×2 (08:00→17:00)
[2018-01-01] MEDS: TAMSULOSIN HCL 0.4 MG CAP.SR.24H PO SCH ×2 (08:38→21:00)
[2018-01-01] MEDS: DIVALPROEX SPRINKLE 125 MG CAP.SPRINK PO SCH ×3 (08:38→17:00)
[2018-01-01] MEDS: MULTIVITAMINS,THERAPEUTIC TABLET PO SCH (08:38)
[2018-01-01] MEDS: FOLIC ACID 1 MG TABLET PO SCH (08:38)
[2018-01-01] MEDS: LEVETIRACETAM 500 MG TABLET PO SCH ×2 (08:38→21:00)
[2018-01-01] MEDS: NIFEdipine XL 30 MG TABSR PO SCH (08:39)
[2018-01-01] MEDS ORDERED: OLANZAPINE 2.5 MG TABLET PO SCH (09:00)
[2018-01-01 10:24] LABS: EOSINOPHILS % (MANUAL) 1 % (0-8); LYMPHOCYTES % (MANUAL) 13 % (20-40); MONOCYTES % (MANUAL) 9 % (2-10); NEUTROPHILS % (MANUAL) 77 % (42-75)
[2018-01-01 11:38] VITALS: BP 104/73
[2018-01-01] MEDS: POTASSIUM CHLORIDE 10 MEQ in IV 1/2NS 1000 ML 1,000 ML IV PRN (12:39)
[2018-01-01] MEDS: MAGNESIUM SULFATE/D5W 100 ML IV SCH ×2 (14:43→16:10)
[2018-01-01] MEDS ORDERED: OLANZAPINE ZYDIS 5 MG TAB.RAPDIS PO PRN (15:00)
[2018-01-01 15:48] VITALS: BP 100/55
[2018-01-01] MEDS: WARFARIN SODIUM 5 MG TABLET PO SCH (17:00)
[2018-01-01 20:00] VITALS: BP 108/56
[2018-01-01] MEDS ORDERED: OLANZAPINE 5 MG TABLET PO SCH (20:00)
[2018-01-01] MEDS: SIMVASTATIN 40 MG TABLET PO SCH (21:00)
[2018-01-01] MEDS ORDERED: OLANZAPINE ZYDIS 5 MG TAB.RAPDIS PO SCH (21:00)
[2018-01-01] MEDS: CEFTRIAXONE 1 G in IV DEXTROSE 5% 50 ML IV SCH (22:00)
[2018-01-02] VITALS (35 sets, daily range): BP systolic 71–131; BP diastolic 47–104
[2018-01-02] MEDS: POTASSIUM CHLORIDE 10 MEQ in IV 1/2NS 1000 ML 1,000 ML IV PRN (03:42)
[2018-01-02] MEDS: PANTOPRAZOLE SODIUM 40 MG TABLET.DR PO SCH (06:48)
[2018-01-02] MEDS: LACOSAMIDE 50 MG TABLET PO SCH ×3 (06:48→22:00)
[2018-01-02 07:37] LABS: CARBON DIOXIDE 26 mmol/L (21-32); CHLORIDE 106 mmol/L (98-107); CREATININE 0.5 mg/dL (0.6-1.3); GLUCOSE 71 mg/dL (74-106); POTASSIUM 4.7 mmol/L (3.5-5.1); UREA NITROGEN, BLOOD 10 mg/dL (7-18)
[2018-01-02] MEDS: BOOST PLUS 237 ML LIQUID (VERY VANILLA) PO SCH ×2 (08:00→17:00)
[2018-01-02] MEDS: LEVETIRACETAM 500 MG TABLET PO SCH (08:42)
[2018-01-02] MEDS: FOLIC ACID 1 MG TABLET PO SCH (08:42)
[2018-01-02] MEDS: MULTIVITAMINS,THERAPEUTIC TABLET PO SCH (08:42)
[2018-01-02] MEDS: TAMSULOSIN HCL 0.4 MG CAP.SR.24H PO SCH ×2 (08:42→21:00)
[2018-01-02] MEDS: DIVALPROEX SPRINKLE 125 MG CAP.SPRINK PO SCH ×3 (08:42→17:00)
[2018-01-02] MEDS: NIFEdipine XL 30 MG TABSR PO SCH (08:49)
[2018-01-02] MEDS ORDERED: OLANZAPINE ZYDIS 5 MG TAB.RAPDIS PO SCH (09:00)
[2018-01-02] MEDS ORDERED: WARF5TAB77 PO (11:58)
[2018-01-02] MEDS ORDERED: NITR100C6 PO (12:00)
[2018-01-02] MEDS ORDERED: IV NS 1000 ML 1,000 ML IV ONE (15:00)
[2018-01-02] MEDS ORDERED: NOREPINEPHRINE BITARTRATE 16 MG in IV DEXTROSE 5% 500 ML IV PRN (16:30)
[2018-01-02] MEDS: WARFARIN SODIUM 5 MG TABLET PO SCH (17:00)
[2018-01-02] MEDS: IV D5/ 0.9% NACL 1,000 ML IV PRN (17:26)
[2018-01-02] MEDS: SIMVASTATIN 40 MG TABLET PO SCH (21:00)
[2018-01-02] MEDS ORDERED: LEVETIRACETAM IV 500 MG in IV DEXTROSE 5% 100 ML IV ONE (21:30)
[2018-01-02] MEDS ORDERED: LEVETIRACETAM 500 MG/5 ML VIAL IV ONE (21:48)
[2018-01-02] MEDS: CEFTRIAXONE 1 G in IV DEXTROSE 5% 50 ML IV SCH (23:28)
[2018-01-03] VITALS (45 sets, daily range): BP systolic 72–134; BP diastolic 53–83
[2018-01-03] MEDS: IV D5/ 0.9% NACL 1,000 ML IV PRN ×3 (03:09→20:30)
[2018-01-03 05:18] LABS: BASOPHILS % (AUTO) 0.1 % (0.0-2.0); HEMOGLOBIN 10.2 g/dL (12.5-16.3); LYMPHOCYTES # (AUTO) 0.3 K/uL (20.0-40.0); NEUTROPHILS # (AUTO) 4.2 K/uL (1.8-8.9); WHITE BLOOD COUNT (AUTO) 4.8 K/uL (3.6-10.2)
[2018-01-03 05:22] LABS: EOSINOPHILS % (AUTO) 0.2 % (0.0-7.0); HEMATOCRIT 30.8 % (36.7-47.1); LYMPHOCYTES % (AUTO) 5.3 % (20.5-51.5); MEAN CORPUSCULAR HEMOGLOBIN 30.8 uug (23.8-33.4); MEAN CORPUSCULAR HGB CONC 33 g/dL (32.5-36.3); MEAN CORPUSCULAR VOLUME 93.4 fL (73.0-96.2); MONOCYTES # (AUTO) 0.3 K/uL (2.0-10.0); MONOCYTES % (AUTO) 7.3 % (0.0-11.0); NEUTROPHILS % (AUTO) 87.1 % (38.5-71.5)
[2018-01-03 05:31] LABS: ALANINE AMINOTRANSFERASE 38 U/L (16-63); ALKALINE PHOSPHATASE 72 U/L (50-136); ASPARTATE AMINOTRANSFERASE 27 U/L (15-37); BILIRUBIN,DIRECT 0.1 mg/dL (0.0-0.2); BILIRUBIN,TOTAL 0.2 mg/dL (0.2-1.0); CARBON DIOXIDE 28 mmol/L (21-32); CHLORIDE 112 mmol/L (98-107); CREATININE 0.7 mg/dL (0.6-1.3); GLUCOSE 86 mg/dL (74-106); POTASSIUM 4.1 mmol/L (3.5-5.1); TOTAL PROTEIN, SERUM 6.5 g/dL (6.4-8.2); UREA NITROGEN, BLOOD 7 mg/dL (7-18)
[2018-01-03 05:32] LABS: PLATELET COUNT (AUTO) 44 K/uL (152-348)
[2018-01-03 05:53] LABS: LYMPHOCYTES % (MANUAL) 5 % (20-40); MONOCYTES % (MANUAL) 8 % (2-10); NEUTROPHILS % (MANUAL) 87 % (42-75)
[2018-01-03] MEDS: LACOSAMIDE 50 MG TABLET PO SCH ×4 (06:00→19:56)
[2018-01-03] MEDS: PANTOPRAZOLE SODIUM 40 MG TABLET.DR PO SCH ×2 (06:03→19:55)
[2018-01-03] MEDS: BOOST PLUS 237 ML LIQUID (VERY VANILLA) PO SCH ×2 (08:00→17:00)
[2018-01-03] MEDS: LEVETIRACETAM IV 500 MG in IV DEXTROSE 5% 100 ML IV SCH ×2 (08:47→20:30)
[2018-01-03] MEDS: FOLIC ACID 1 MG TABLET PO SCH (09:00)
[2018-01-03] MEDS: MULTIVITAMINS,THERAPEUTIC TABLET PO SCH (09:00)
[2018-01-03] MEDS: TAMSULOSIN HCL 0.4 MG CAP.SR.24H PO SCH ×2 (09:00→19:54)
[2018-01-03] MEDS: NIFEdipine XL 30 MG TABSR PO SCH (09:00)
[2018-01-03] MEDS: DIVALPROEX SPRINKLE 125 MG CAP.SPRINK PO SCH ×3 (09:00→17:00)
[2018-01-03] MEDS: MEROPENEM 1 G in IV NORMAL SALINE 100 ML IV SCH ×3 (09:23→21:15)
[2018-01-03] MEDS ORDERED: NORMAL SALINE FLUSH 10 ML DISP.SYRIN IV PRN (11:15)
[2018-01-03] MEDS: NORMAL SALINE FLUSH 10 ML DISP.SYRIN IV SCH ×2 (14:18→21:15)
[2018-01-03] MEDS: WARFARIN SODIUM 5 MG TABLET PO SCH (17:00)
[2018-01-03] MEDS: SIMVASTATIN 40 MG TABLET PO SCH (19:54)
[2018-01-04] VITALS (19 sets, daily range): BP systolic 102–169; BP diastolic 37–107
[2018-01-04] MEDS: MEROPENEM 1 G in IV NORMAL SALINE 100 ML IV SCH ×3 (05:27→22:31)
[2018-01-04] MEDS: NORMAL SALINE FLUSH 10 ML DISP.SYRIN IV SCH ×3 (05:28→22:31)
[2018-01-04] MEDS: IV D5/ 0.9% NACL 1,000 ML IV PRN (07:04)
[2018-01-04] MEDS: BOOST PLUS 237 ML LIQUID (VERY VANILLA) PO SCH ×2 (08:00→16:22)
[2018-01-04] MEDS: DIVALPROEX SPRINKLE 125 MG CAP.SPRINK PO SCH ×3 (08:23→16:23)
[2018-01-04] MEDS: TAMSULOSIN HCL 0.4 MG CAP.SR.24H PO SCH ×2 (08:23→19:30)
[2018-01-04] MEDS: NIFEdipine XL 30 MG TABSR PO SCH (08:23)
[2018-01-04] MEDS: FOLIC ACID 1 MG TABLET PO SCH (08:23)
[2018-01-04] MEDS: MULTIVITAMINS,THERAPEUTIC TABLET PO SCH (08:24)
[2018-01-04] MEDS: LEVETIRACETAM IV 500 MG in IV DEXTROSE 5% 100 ML IV SCH ×2 (09:14→20:10)
[2018-01-04 10:03] LABS: BASOPHILS % (AUTO) 0.2 % (0.0-2.0); EOSINOPHILS % (AUTO) 0.7 % (0.0-7.0); HEMOGLOBIN 10.6 g/dL (12.5-16.3); LYMPHOCYTES # (AUTO) 0.9 K/uL (20.0-40.0); LYMPHOCYTES % (AUTO) 15.5 % (20.5-51.5); MONOCYTES # (AUTO) 0.4 K/uL (2.0-10.0); MONOCYTES % (AUTO) 7.6 % (0.0-11.0); NEUTROPHILS # (AUTO) 4.3 K/uL (1.8-8.9)
[2018-01-04 10:08] LABS: HEMATOCRIT 32.1 % (36.7-47.1); MEAN CORPUSCULAR HEMOGLOBIN 30.9 uug (23.8-33.4); MEAN CORPUSCULAR HGB CONC 33 g/dL (32.5-36.3); MEAN CORPUSCULAR VOLUME 93.6 fL (73.0-96.2); RED BLOOD CELL COUNT(AUTO) 3.43 MIL/uL (4.06-5.63); WHITE BLOOD COUNT (AUTO) 5.6 K/uL (3.6-10.2)
[2018-01-04 10:16] LABS: PLATELET COUNT (AUTO) 39 K/uL (152-348)
[2018-01-04 10:45] LABS: CARBON DIOXIDE 28 mmol/L (21-32); CHLORIDE 106 mmol/L (98-107); CREATININE 0.8 mg/dL (0.6-1.3); GLUCOSE 112 mg/dL (74-106); POTASSIUM 3.2 mmol/L (3.5-5.1); UREA NITROGEN, BLOOD 7 mg/dL (7-18)
[2018-01-04 10:50] LABS: BAND % (MANUAL) 16 % (0-10); EOSINOPHILS % (MANUAL) 1 % (0-8); LYMPHOCYTES % (MANUAL) 20 % (20-40); MONOCYTES % (MANUAL) 7 % (2-10); NEUTROPHILS % (MANUAL) 56 % (42-75)
[2018-01-04] MEDS: POTASSIUM CHLORIDE 10 MEQ in IV NORMAL SALINE 50 ML IV SCH ×4 (12:08→16:23)
[2018-01-04] MEDS ORDERED: NITROGLYCERIN OINT 1 GM PACKET TP PRN ×3 (13:45→18:00)
[2018-01-04] MEDS: LACOSAMIDE 50 MG TABLET PO SCH ×2 (13:57→19:30)
[2018-01-04] MEDS ORDERED: Z GUARD REMEDY PASTE 57 GM TUBE TOP PRN (14:15)
[2018-01-04] MEDS: WARFARIN SODIUM 5 MG TABLET PO SCH (16:22)
[2018-01-04 16:26] LABS: *BILIRUBIN,URIN NEGATIVE (NEGATIVE); *BLOOD, URINE 2+ (NEGATIVE); *CLARITY,URINE CLEAR (CLEAR); *COLOR,URINE YELLOW (YELLOW); *KETONES,URINE NEGATIVE (NEGATIVE); *PROTEIN,URINE NEGATIVE (NEGATIVE); *UROBILINOGEN,URINE 0.2 E.U./dl (NORMAL); LEUKOCYTE ESTERASE ,URINE NEGATIVE (NEGATIVE); NITRITE, URINE NEGATIVE (NEGATIVE); UGLUCOSE NEGATIVE (NEGATIVE)
[2018-01-04 16:30] LABS: *CREATININE,URINE < 13.0 mg/dL (30-125); *URINE TOTAL PROTEIN RANDOM 9.8 mg/dL (<150/24HR)
[2018-01-04 17:07] LABS: BACTERIA,URINE NONE SEEN /HPF (NONE SEEN); SQUAMOUS EPITHELIAL CELL,UR FEW /HPF (NONE SEEN); WBC,URINE 0-3 /HPF (0-3)
[2018-01-04] MEDS ORDERED: NITROGLYCERIN OINT 1 GM PACKET TP SCH (18:00)
[2018-01-04] MEDS: SIMVASTATIN 40 MG TABLET PO SCH (19:30)
[2018-01-04] MEDS: PANTOPRAZOLE SODIUM 40 MG TABLET.DR PO SCH (19:30)
[2018-01-05 00:01] VITALS: BP 93/72
[2018-01-05] MEDS: IV D5/ 0.9% NACL 1,000 ML IV PRN ×2 (01:27→12:56)
[2018-01-05 04:00] VITALS: BP 128/82
[2018-01-05 05:05] LABS: BASOPHILS % (AUTO) 0.1 % (0.0-2.0); EOSINOPHILS % (AUTO) 0.7 % (0.0-7.0); HEMATOCRIT 29.7 % (36.7-47.1); HEMOGLOBIN 9.8 g/dL (12.5-16.3); LYMPHOCYTES # (AUTO) 0.6 K/uL (20.0-40.0); MEAN CORPUSCULAR HGB CONC 33 g/dL (32.5-36.3); MONOCYTES # (AUTO) 0.6 K/uL (2.0-10.0); MONOCYTES % (AUTO) 9.9 % (0.0-11.0)
[2018-01-05 05:06] LABS: LYMPHOCYTES % (AUTO) 9.1 % (20.5-51.5); MEAN CORPUSCULAR HEMOGLOBIN 30.5 uug (23.8-33.4); MEAN CORPUSCULAR VOLUME 92.6 fL (73.0-96.2); NEUTROPHILS % (AUTO) 80.2 % (38.5-71.5); RED BLOOD CELL COUNT(AUTO) 3.21 MIL/uL (4.06-5.63); WHITE BLOOD COUNT (AUTO) 6.2 K/uL (3.6-10.2)
[2018-01-05] MEDS: NORMAL SALINE FLUSH 10 ML DISP.SYRIN IV SCH ×3 (05:07→21:04)
[2018-01-05] MEDS: MEROPENEM 1 G in IV NORMAL SALINE 100 ML IV SCH ×3 (05:07→21:15)
[2018-01-05 05:46] LABS: ALANINE AMINOTRANSFERASE 28 U/L (16-63); ALKALINE PHOSPHATASE 70 U/L (50-136); ASPARTATE AMINOTRANSFERASE 21 U/L (15-37); BILIRUBIN,TOTAL 0.5 mg/dL (0.2-1.0); CARBON DIOXIDE 30 mmol/L (21-32); CHLORIDE 107 mmol/L (98-107); CREATININE 0.7 mg/dL (0.6-1.3); GLUCOSE 100 mg/dL (74-106); MAGNESIUM 1.5 mg/dL (1.8-2.4); POTASSIUM 3.6 mmol/L (3.5-5.1); TOTAL PROTEIN, SERUM 6.4 g/dL (6.4-8.2); UREA NITROGEN, BLOOD 8 mg/dL (7-18)
[2018-01-05 06:22] LABS: PLATELET COUNT (AUTO) 39 K/uL (152-348)
[2018-01-05 07:33] LABS: BAND % (MANUAL) 19 % (0-10); EOSINOPHILS % (MANUAL) 1 % (0-8); LYMPHOCYTES % (MANUAL) 10 % (20-40); MONOCYTES % (MANUAL) 10 % (2-10); NEUTROPHILS % (MANUAL) 60 % (42-75)
[2018-01-05] MEDS: BOOST PLUS 237 ML LIQUID (VERY VANILLA) PO SCH ×2 (08:00→16:16)
[2018-01-05] MEDS: DIVALPROEX SPRINKLE 125 MG CAP.SPRINK PO SCH ×3 (08:36→16:19)
[2018-01-05] MEDS: LEVETIRACETAM IV 500 MG in IV DEXTROSE 5% 100 ML IV SCH ×2 (08:36→20:50)
[2018-01-05] MEDS: NIFEdipine XL 30 MG TABSR PO SCH (08:37)
[2018-01-05] MEDS: TAMSULOSIN HCL 0.4 MG CAP.SR.24H PO SCH ×2 (08:37→20:50)
[2018-01-05] MEDS: MULTIVITAMINS,THERAPEUTIC TABLET PO SCH (08:37)
[2018-01-05] MEDS: FOLIC ACID 1 MG TABLET PO SCH (08:37)
[2018-01-05 11:28] VITALS: BP 130/70
[2018-01-05] MEDS: LACOSAMIDE 50 MG TABLET PO SCH ×2 (13:05→21:05)
[2018-01-05 15:40] VITALS: BP 154/91
[2018-01-05] MEDS: WARFARIN SODIUM 5 MG TABLET PO SCH (16:17)
[2018-01-05 20:00] VITALS: BP 150/85
[2018-01-05] MEDS: SIMVASTATIN 40 MG TABLET PO SCH (20:50)
[2018-01-06] VITALS: BP 135/85
[2018-01-06 04:00] VITALS: BP 124/77
[2018-01-06] MEDS: IV D5/ 0.9% NACL 1,000 ML IV PRN ×2 (04:43→12:19)
[2018-01-06] MEDS: NORMAL SALINE FLUSH 10 ML DISP.SYRIN IV SCH ×3 (05:00→22:05)
[2018-01-06] MEDS: MEROPENEM 1 G in IV NORMAL SALINE 100 ML IV SCH ×3 (05:00→23:06)
[2018-01-06] MEDS: LACOSAMIDE 50 MG TABLET PO SCH ×3 (05:03→22:00)
[2018-01-06] MEDS: PANTOPRAZOLE SODIUM 40 MG TABLET.DR PO SCH (06:01)
[2018-01-06 06:02] LABS: BASOPHILS % (AUTO) 0.3 % (0.0-2.0); EOSINOPHILS # (AUTO) 0.1 K/uL (0.0-0.7); EOSINOPHILS % (AUTO) 1.7 % (0.0-7.0); HEMATOCRIT 27.5 % (36.7-47.1); HEMOGLOBIN 9.2 g/dL (12.5-16.3); LYMPHOCYTES # (AUTO) 0.9 K/uL (20.0-40.0); LYMPHOCYTES % (AUTO) 19.7 % (20.5-51.5); MEAN CORPUSCULAR HEMOGLOBIN 30.9 uug (23.8-33.4); MEAN CORPUSCULAR HGB CONC 33 g/dL (32.5-36.3); MEAN CORPUSCULAR VOLUME 92.6 fL (73.0-96.2); MONOCYTES # (AUTO) 0.6 K/uL (2.0-10.0); MONOCYTES % (AUTO) 14.4 % (0.0-11.0); NEUTROPHILS # (AUTO) 2.8 K/uL (1.8-8.9); NEUTROPHILS % (AUTO) 63.9 % (38.5-71.5); RED BLOOD CELL COUNT(AUTO) 2.98 MIL/uL (4.06-5.63); WHITE BLOOD COUNT (AUTO) 4.3 K/uL (3.6-10.2)
[2018-01-06 06:08] LABS: PLATELET COUNT (AUTO) 47 K/uL (152-348)
[2018-01-06 06:33] LABS: IRON, SERUM 59 ug/dL (50-175)
[2018-01-06 06:43] LABS: ALANINE AMINOTRANSFERASE 24 U/L (16-63); ALKALINE PHOSPHATASE 67 U/L (50-136); ASPARTATE AMINOTRANSFERASE 19 U/L (15-37); BILIRUBIN,TOTAL 0.6 mg/dL (0.2-1.0); CARBON DIOXIDE 31 mmol/L (21-32); CHLORIDE 105 mmol/L (98-107); CREATININE 0.7 mg/dL (0.6-1.3); FERRITIN 454 ng/mL (26-388); GLUCOSE 88 mg/dL (74-106); MAGNESIUM 1.6 mg/dL (1.8-2.4); PHOSPHOROUS 3.2 mg/dL (2.5-4.9); POTASSIUM 3.3 mmol/L (3.5-5.1); TOTAL PROTEIN, SERUM 6.1 g/dL (6.4-8.2); UREA NITROGEN, BLOOD 7 mg/dL (7-18)
[2018-01-06 08:00] VITALS: BP 119/77
[2018-01-06] MEDS: BOOST PLUS 237 ML LIQUID (VERY VANILLA) PO SCH ×2 (08:00→17:00)
[2018-01-06] MEDS: LEVETIRACETAM IV 500 MG in IV DEXTROSE 5% 100 ML IV SCH ×2 (08:12→22:35)
[2018-01-06] MEDS: FOLIC ACID 1 MG TABLET PO SCH (08:27)
[2018-01-06] MEDS: DIVALPROEX SPRINKLE 125 MG CAP.SPRINK PO SCH ×3 (08:27→17:00)
[2018-01-06] MEDS: TAMSULOSIN HCL 0.4 MG CAP.SR.24H PO SCH ×2 (08:27→21:00)
[2018-01-06] MEDS: MULTIVITAMINS,THERAPEUTIC TABLET PO SCH (08:28)
[2018-01-06] MEDS: NIFEdipine XL 30 MG TABSR PO SCH (08:28)
[2018-01-06 11:17] VITALS: BP 123/69
[2018-01-06] MEDS: MAGNESIUM SULFATE/D5W 100 ML IV SCH ×2 (14:14→16:10)
[2018-01-06 15:39] VITALS: BP 99/57
[2018-01-06] MEDS: POTASSIUM CHLORIDE 10 MEQ in IV NORMAL SALINE 50 ML IV SCH ×2 (18:11→21:22)
[2018-01-06 20:00] VITALS: BP 101/61
[2018-01-06] MEDS: SIMVASTATIN 40 MG TABLET PO SCH (21:00)
[2018-01-07] MEDS: IV D5/ 0.9% NACL 1,000 ML IV PRN ×2 (02:56→16:06)
[2018-01-07 04:00] VITALS: BP 128/77
[2018-01-07] MEDS: MEROPENEM 1 G in IV NORMAL SALINE 100 ML IV SCH ×3 (05:47→22:22)
[2018-01-07] MEDS: NORMAL SALINE FLUSH 10 ML DISP.SYRIN IV SCH ×3 (05:47→22:22)
[2018-01-07] MEDS: LACOSAMIDE 50 MG TABLET PO SCH ×3 (05:47→22:22)
[2018-01-07] MEDS: PANTOPRAZOLE SODIUM 40 MG TABLET.DR PO SCH (05:49)
[2018-01-07 07:45] LABS: CARBON DIOXIDE 33 mmol/L (21-32); CHLORIDE 109 mmol/L (98-107); CREATININE 0.6 mg/dL (0.6-1.3); GLUCOSE 97 mg/dL (74-106); POTASSIUM 3.5 mmol/L (3.5-5.1); UREA NITROGEN, BLOOD 9 mg/dL (7-18)
[2018-01-07 08:00] VITALS: BP 143/82
[2018-01-07] MEDS: BOOST PLUS 237 ML LIQUID (VERY VANILLA) PO SCH ×2 (08:00→16:59)
[2018-01-07] MEDS ORDERED: BISACODYL 10 MG SUPP.RECT RC ONE (08:00)
[2018-01-07] MEDS: LEVETIRACETAM IV 500 MG in IV DEXTROSE 5% 100 ML IV SCH ×2 (08:15→21:42)
[2018-01-07] MEDS: DIVALPROEX SPRINKLE 125 MG CAP.SPRINK PO SCH ×3 (08:53→16:59)
[2018-01-07] MEDS: TAMSULOSIN HCL 0.4 MG CAP.SR.24H PO SCH ×2 (08:53→21:42)
[2018-01-07] MEDS: FOLIC ACID 1 MG TABLET PO SCH (08:53)
[2018-01-07] MEDS: NIFEdipine XL 30 MG TABSR PO SCH (08:53)
[2018-01-07] MEDS: MULTIVITAMINS,THERAPEUTIC TABLET PO SCH (08:54)
[2018-01-07 11:27] VITALS: BP 147/81
[2018-01-07 15:52] VITALS: BP 149/69
[2018-01-07 20:25] VITALS: BP 113/63
[2018-01-07] MEDS: SIMVASTATIN 40 MG TABLET PO SCH (21:43)
[2018-01-08] MEDS: IV D5/ 0.9% NACL 1,000 ML IV PRN (03:06)
[2018-01-08 04:00] VITALS: BP 114/69
[2018-01-08] MEDS: NORMAL SALINE FLUSH 10 ML DISP.SYRIN IV SCH ×2 (06:28→13:19)
[2018-01-08] MEDS: LACOSAMIDE 50 MG TABLET PO SCH ×2 (06:28→14:00)
[2018-01-08] MEDS: PANTOPRAZOLE SODIUM 40 MG TABLET.DR PO SCH (06:28)
[2018-01-08] MEDS: MEROPENEM 1 G in IV NORMAL SALINE 100 ML IV SCH ×2 (06:28→13:21)
[2018-01-08] MEDS: BOOST PLUS 237 ML LIQUID (VERY VANILLA) PO SCH (08:00)
[2018-01-08] MEDS: FOLIC ACID 1 MG TABLET PO SCH (08:05)
[2018-01-08] MEDS: NIFEdipine XL 30 MG TABSR PO SCH (08:05)
[2018-01-08] MEDS: MULTIVITAMINS,THERAPEUTIC TABLET PO SCH (08:05)
[2018-01-08] MEDS: TAMSULOSIN HCL 0.4 MG CAP.SR.24H PO SCH (08:05)
[2018-01-08] MEDS: DIVALPROEX SPRINKLE 125 MG CAP.SPRINK PO SCH ×2 (08:05→13:00)
[2018-01-08] MEDS: LEVETIRACETAM IV 500 MG in IV DEXTROSE 5% 100 ML IV SCH (08:47)
[2018-01-08 11:00] VITALS: BP 99/62
[2018-01-08 14:53] VITALS: BP 126/66
== END 2018-01-08 17:10 | disposition hospice, home (50) | DRG 871 ==
LOC: ER 21:08 → TELE 12-31 01:30 → MED 12-31 15:10 → CCU 01-02 15:07 → TELE 01-05 05:44 → MED 01-06 17:40
PROVIDERS: ADMIT Internal Medicine Nephrology; ATTEND Internal Medicine
PROC: 05H633Z Insertion of Infusion Device into Left Subclavian Vein, Percutaneous Approach (ICD-10-PCS; principal; 2018-01-02)
DX: A41.9 Sepsis, unspecified organism (principal); R65.21 Severe sepsis with septic shock; G92 Toxic encephalopathy; E86.9 Volume depletion, unspecified; N39.0 Urinary tract infection, site not specified; F03.90 Unspecified dementia, unspecified severity, without behavioral disturbance, psychotic disturbance, mood disturbance, and anxiety; F29 Unspecified psychosis not due to a substance or known physiological condition; G40.909 Epilepsy, unspecified, not intractable, without status epilepticus; Z79.82 Long term (current) use of aspirin; R00.1 Bradycardia, unspecified; R79.1 Abnormal coagulation profile; T45.515A Adverse effect of anticoagulants, initial encounter; D64.9 Anemia, unspecified; Z86.711 Personal history of pulmonary embolism; B96.20 Unspecified Escherichia coli [E. coli] as the cause of diseases classified elsewhere; Z16.12 Extended spectrum beta lactamase (ESBL) resistance; I10 Essential (primary) hypertension; T50.905A Adverse effect of unspecified drugs, medicaments and biological substances, initial encounter; Y92.099 Unspecified place in other non-institutional residence as the place of occurrence of the external cause
CPT/HCPCS: 36415; 36569; 70030-TC; 70450; 71045; 80164; 80299; 80307; 82747; 83550; 83735; 84100; 84156; 84300; 84443; 85014; 85025; 85610; 85730; 86592; 87077; 87086; 92526; 92610; 93005; 95819; A4663; C1758; G0480; G0480-TC; J0696; J1953; J2185; J3475; J3480; J3490; J7030; J7042; J7060

== ENCOUNTER 2018-07-02 11:51 | Emergency (ER) | payer MEDICARE, OTHER ==
[~2018-07-02] VITALS: Ht 175.3 cm; Wt 72.6 kg
[~2018-07-02 11:51] MED LIST changes: +ACET-2154 PO; -AMLO10TA2 PO; -ATOR80TA PO; -CAPS42.57 TP; +DIVA125C PO; -ISON300T4 PO; +LACT-239 PO; -MERO1VIA IV; +MULT-1119 PO; +NIFE30TA2 PO; +OLAN7.5T3 PO; +PANT40TA4 PO; -PYRI50TA14 PO; -QUET25TA PO; -SENN-167 PO; -VANC1PLA10 IV; -WARF-58 PO
--- NOTE | 2018-07-02 12:02 | NUR ---
PATIENT IS AWAKE AND ALERT. HOB ELEVATED. VITAL SIGNS STABLE.
[2018-07-02] MEDS ORDERED: ACETAMINOPHEN PR (12:14)
[2018-07-02] MEDS ORDERED: PROC25SU29 RC (12:14)
[2018-07-02] MEDS ORDERED: ATRO2DRO4 (12:14)
[2018-07-02] MEDS ORDERED: BISA10SU12 RC (12:14)
[2018-07-02] MEDS ORDERED: LORA2TAB PO (12:14)
[2018-07-02] MEDS ORDERED: ATOR80TA PO (12:14)
[2018-07-02] MEDS ORDERED: MORP15TA7 PO (12:14)
[2018-07-02 12:36] LABS: BASOPHILS % (AUTO) 0.5 % (0.0-2.0); EOSINOPHILS # (AUTO) 0.1 K/uL (0.0-0.7); EOSINOPHILS % (AUTO) 2.9 % (0.0-7.0); HEMATOCRIT 32.3 % (36.7-47.1); HEMOGLOBIN 10.8 g/dL (12.5-16.3); LYMPHOCYTES # (AUTO) 1.8 K/uL (20.0-40.0); LYMPHOCYTES % (AUTO) 35.9 % (20.5-51.5); MEAN CORPUSCULAR HEMOGLOBIN 30.1 uug (23.8-33.4); MEAN CORPUSCULAR HGB CONC 33 g/dL (32.5-36.3); MEAN CORPUSCULAR VOLUME 90.3 fL (73.0-96.2); MONOCYTES # (AUTO) 0.5 K/uL (2.0-10.0); MONOCYTES % (AUTO) 9.6 % (0.0-11.0); NEUTROPHILS # (AUTO) 2.6 K/uL (1.8-8.9); NEUTROPHILS % (AUTO) 51.1 % (38.5-71.5); PLATELET COUNT (AUTO) 178 K/uL (152-348); RED BLOOD CELL COUNT(AUTO) 3.58 MIL/uL (4.06-5.63); WHITE BLOOD COUNT (AUTO) 5.1 K/uL (3.6-10.2)
[2018-07-02 12:43] LABS: CARBON DIOXIDE 29 mmol/L (21-32); CHLORIDE 107 mmol/L (98-107); CREATININE 0.6 mg/dL (0.6-1.3); GLUCOSE 89 mg/dL (74-106); POTASSIUM 3.9 mmol/L (3.5-5.1); UREA NITROGEN, BLOOD 23 mg/dL (7-18)
[2018-07-02 12:49] LABS: ALANINE AMINOTRANSFERASE 17 U/L (16-63); ALKALINE PHOSPHATASE 70 U/L (50-136); ASPARTATE AMINOTRANSFERASE 22 U/L (15-37); BILIRUBIN,DIRECT 0.1 mg/dL (0.0-0.2); BILIRUBIN,TOTAL 0.5 mg/dL (0.2-1.0); TOTAL PROTEIN, SERUM 8.5 g/dL (6.4-8.2)
--- NOTE | 2018-07-02 13:30 | NUR ---
PATIENT IS SITTING UP LOOKING AT THE TV WITH NO COMPLAINTS.
--- NOTE | 2018-07-02 14:18 | NUR ---
PATIENT TO GO BACK TO [facility]. TRANSPORTATION HAS BEEN CALLED.
--- NOTE | 2018-07-02 15:20 | NUR ---
WAITING FOR AMBULANCE TO TAKE PATIENT BACK TO [facility]... HE IS AWAKE AND ALERT WITH NO COMPLAINTS
--- NOTE | 2018-07-02 15:30 | NUR ---
[facility] STAFF HERE TO TAKE PATIENT BACK TO FACILITY.
[2018-07-02 15:34] VITALS: BP 115/72
== END 2018-07-02 15:35 | disposition home or self-care (01) ==
LOC: ER 11:54
DX: S09.90XA Unspecified injury of head, initial encounter (principal); W19.XXXA Unspecified fall, initial encounter; Y93.89 Activity, other specified; Y92.89 Other specified places as the place of occurrence of the external cause; Y99.8 Other external cause status
CPT/HCPCS: 36415; 70030-TC; 70450; 71045; 72125; 83605; 85025; 85730; 87040; 93005; A4663

== ENCOUNTER 2019-01-05 00:36 | Emergency (ER) | payer SELFPAY ==
[~2019-01-05] VITALS: Ht 170.2 cm; Wt 72.6 kg
[~2019-01-05 00:36] MED LIST changes: +ACETAMINOPHEN PR; +ATOR80TA PO; +ATRO2DRO4; +BISA10SU12 RC; -DIVA125C PO; +DIVA125C2 PO; +LORA2TAB PO; +MORP15TA7 PO; -MULT-1119 PO; -PANT40TA4 PO; +PROC25SU29 RC; -TAMS0.4C34 PO
--- NOTE | 2019-01-05 00:48 | NUR ---
Dr. Corona at bedside for MSE.
[2019-01-05] MEDS ORDERED: CYCLOBENZAPRINE HCL 10 MG TABLET ONE (00:56)
[2019-01-05] MEDS ORDERED: OXYCODONE/APAP 5-325 MG TABLET ONE (00:56)
[2019-01-05] MEDS ORDERED: CYCLOBENZAPRINE HCL 10 MG TABLET PO ONE (01:00)
[2019-01-05] MEDS ORDERED: OXYCODONE/APAP 5-325 MG TABLET PO ONE (01:00)
[2019-01-05 01:11] LABS: BASOPHILS % (AUTO) 0.3 % (0.0-2.0); EOSINOPHILS # (AUTO) 0.1 K/uL (0.0-0.7); EOSINOPHILS % (AUTO) 2.6 % (0.0-7.0); HEMATOCRIT 33.1 % (36.7-47.1); LYMPHOCYTES # (AUTO) 2.4 K/uL (20.0-40.0); LYMPHOCYTES % (AUTO) 47.7 % (20.5-51.5); MEAN CORPUSCULAR HEMOGLOBIN 31.6 uug (23.8-33.4); MEAN CORPUSCULAR HGB CONC 33 g/dL (32.5-36.3); MEAN CORPUSCULAR VOLUME 95.4 fL (73.0-96.2); MONOCYTES # (AUTO) 0.4 K/uL (2.0-10.0); MONOCYTES % (AUTO) 9.1 % (0.0-11.0); NEUTROPHILS % (AUTO) 40.3 % (38.5-71.5); PLATELET COUNT (AUTO) 162 K/uL (152-348); RED BLOOD CELL COUNT(AUTO) 3.47 MIL/uL (4.06-5.63); WHITE BLOOD COUNT (AUTO) 4.9 K/uL (3.6-10.2)
[2019-01-05 01:23] LABS: ALANINE AMINOTRANSFERASE 9 U/L (16-63); ALKALINE PHOSPHATASE 76 U/L (50-136); ASPARTATE AMINOTRANSFERASE 13 U/L (15-37); BILIRUBIN,TOTAL 0.4 mg/dL (0.2-1.0); CARBON DIOXIDE 27 mmol/L (21-32); CHLORIDE 105 mmol/L (98-107); CREATININE 0.6 mg/dL (0.6-1.3); GLUCOSE 87 mg/dL (74-106); POTASSIUM 3.5 mmol/L (3.5-5.1); TOTAL PROTEIN, SERUM 7.5 g/dL (6.4-8.2); UREA NITROGEN, BLOOD 21 mg/dL (7-18)
--- NOTE | 2019-01-05 01:52 | NUR ---
Called [facility] for transport, spoke with Carlton, trip#[id number], eta 45-60 min ~0300
--- NOTE | 2019-01-05 02:46 | NUR ---
Antonio arrived to ER to transport patient back to [facility]. Report and documentation given to EMT.
--- NOTE | 2019-01-05 02:52 | NUR ---
Pt out of ER via [facility], VSS, no acute signs of distress, report and documentation with EMT, to be transported back to [facility].
[2019-01-05 02:58] VITALS: BP 133/78
[2019-01-06] MEDS ORDERED: ACET650S13 RC (22:29)
[2019-01-06] MEDS ORDERED: LORA2ORA5 SL (22:29)
[2019-01-06] MEDS ORDERED: MORP20SO PO (22:29)
== END 2019-01-05 02:59 | disposition home or self-care (01) ==
LOC: ER 00:38
DX: M79.652 Pain in left thigh (principal); F03.90 Unspecified dementia, unspecified severity, without behavioral disturbance, psychotic disturbance, mood disturbance, and anxiety; Z86.73 Personal history of transient ischemic attack (TIA), and cerebral infarction without residual deficits; Z79.891 Long term (current) use of opiate analgesic; Z79.82 Long term (current) use of aspirin; Z79.899 Other long term (current) drug therapy
CPT/HCPCS: 36415; 85025; 85610; A4663

== ENCOUNTER 2019-01-06 21:44 | Emergency (ER) | payer SELFPAY ==
[~2019-01-06] VITALS: Ht 170.2 cm; Wt 63.5 kg
[2019-01-06] MEDS ORDERED: ACET650S13 RC (22:29)
[2019-01-06] MEDS ORDERED: LORA2ORA5 SL (22:29)
[2019-01-06] MEDS ORDERED: MORP20SO PO (22:29)
[2019-01-06] MEDS ORDERED: MORPHINE SULFATE 2 MG/1 ML DISP.SYRIN IV ONE (23:15)
[2019-01-06] MEDS ORDERED: ONDANSETRON 4 MG/2 ML VIAL IV ONE (23:15)
[2019-01-06 23:54] LABS: BASOPHILS % (AUTO) 0.5 % (0.0-2.0); EOSINOPHILS # (AUTO) 0.1 K/uL (0.0-0.7); EOSINOPHILS % (AUTO) 2.7 % (0.0-7.0); HEMATOCRIT 34.8 % (36.7-47.1); HEMOGLOBIN 11.5 g/dL (12.5-16.3); LYMPHOCYTES # (AUTO) 1.8 K/uL (20.0-40.0); LYMPHOCYTES % (AUTO) 47.9 % (20.5-51.5); MEAN CORPUSCULAR HEMOGLOBIN 31.8 uug (23.8-33.4); MEAN CORPUSCULAR HGB CONC 33 g/dL (32.5-36.3); MEAN CORPUSCULAR VOLUME 96.5 fL (73.0-96.2); MONOCYTES # (AUTO) 0.4 K/uL (2.0-10.0); MONOCYTES % (AUTO) 10.7 % (0.0-11.0); NEUTROPHILS # (AUTO) 1.4 K/uL (1.8-8.9); NEUTROPHILS % (AUTO) 38.2 % (38.5-71.5); PLATELET COUNT (AUTO) 168 K/uL (152-348); RED BLOOD CELL COUNT(AUTO) 3.61 MIL/uL (4.06-5.63); WHITE BLOOD COUNT (AUTO) 3.7 K/uL (3.6-10.2)
[2019-01-06] MEDS ORDERED: ONDANSETRON 4 MG/2 ML VIAL ONE (23:59)
[2019-01-06] MEDS ORDERED: MORPHINE SULFATE 2 MG/1 ML DISP.SYRIN ONE (23:59)
[2019-01-07 00:05] LABS: CARBON DIOXIDE 29 mmol/L (21-32); CHLORIDE 103 mmol/L (98-107); CREATININE 0.6 mg/dL (0.6-1.3); GLUCOSE 100 mg/dL (74-106); POTASSIUM 4.4 mmol/L (3.5-5.1); UREA NITROGEN, BLOOD 18 mg/dL (7-18)
[2019-01-07 00:12] LABS: ALANINE AMINOTRANSFERASE 13 U/L (16-63); ALKALINE PHOSPHATASE 83 U/L (50-136); ASPARTATE AMINOTRANSFERASE 15 U/L (15-37); BILIRUBIN,DIRECT 0.1 mg/dL (0.0-0.2); BILIRUBIN,TOTAL 0.3 mg/dL (0.2-1.0); TOTAL PROTEIN, SERUM 7.8 g/dL (6.4-8.2)
[2019-01-07] MEDS ORDERED: IV NORMAL SALINE 250 ML IV ONE (00:13)
[2019-01-07] MEDS ORDERED: IOHEXOL 350 100 ML INFUS..BTL ONE (00:13)
[2019-01-07] MEDS ORDERED: SWABABLE VALVE TRANSFER SET EA MC ONE (00:13)
[2019-01-07] MEDS ORDERED: LIDOCAINE 5% PATCH TD ONE ×2 (02:30→02:39)
[2019-01-07 04:06] VITALS: BP 91/58
== END 2019-01-07 04:06 | disposition home or self-care (01) ==
LOC: ER 21:44
DX: M17.0 Bilateral primary osteoarthritis of knee (principal); Z79.82 Long term (current) use of aspirin; Z79.899 Other long term (current) drug therapy
CPT/HCPCS: 36415; 73700; 74176; 80048; 80076; 84484; 85025; 85730; 93970; 96374; 96375; 99284; J2270; J2405; 70030-TC; A4663; J7050; Q9967